=== PATIENT | female | born 1980 | race African-American/Black ===

== ENCOUNTER 2021-02-09 15:27 | Outpatient (CLI) | payer OTHER, SELFPAY ==
--- NOTE | ~2021-02-09 | US_ITS ---
EXAMINATION: US pelvic complete w TV DATE: 02/09/2021 16:31 INDICATION: Abnormal uterine and vaginal bleeding TECHNIQUE: Multiple transabdominal and endovaginal sonographic images of the pelvis were obtained. COMPARISON: None. FINDINGS: The uterus measures 7.7 x 4.4 x 5.1 cm. The endometrial complex measures 3 mm. A 4 mm hyper echoic focus associated with the endometrium could reflect an endometrial calcification. The right ov veda measures 3.0 x 2.9 x 2.4 cm. The left ovary measures 2.6 x 1.6 x 2.3 cm. There is normal vascular flow in the ovaries. There is no free fluid in the pelvis. IMPRESSION: 1. No sonographic correlate for the patient's symptoms. Reviewed, dictated and finalized at location B.
== END 2021-02-09 15:28 | disposition home or self-care (01) ==
PROVIDERS: Visit Provider Student in an Organized Health Care Education/Training Program
DX: N93.9 Abnormal uterine and vaginal bleeding, unspecified (principal)
CPT/HCPCS: 76830; 76856

== ENCOUNTER 2024-03-29 15:11 | Outpatient (CLI) | payer OTHER, SELFPAY ==
[2024-03-29 15:55] LABS: Hematocrit 37.9 % (37.0-47.0); Hemoglobin 12.3 g/dL (12.0-15.0); Mean Corpuscular HGB Conc 32.5 g/dl (32-36); Mean Corpuscular Hemoglobin 28.7 pg (26-34); Mean Corpuscular Volume 88.6 fl (80-100); Mean Platelet Volume 10.9 fl (7.4-10.4); Platelet Count Result 352 k/mm3 (150-375); Red Blood Count 4.28 M/mm3 (4.2-5.4); Red Cell Distribution Width 13.2 % (11.5-14.5); White Blood Count 7.8 K/mm3 (4.5-10.0)
== END 2024-03-29 15:12 | disposition home or self-care (01) ==
LOC: ANHLAB 15:12
PROVIDERS: Visit Provider Nurse Practitioner Family
DX: N93.9 Abnormal uterine and vaginal bleeding, unspecified (principal)
CPT/HCPCS: 36415; 85027

== ENCOUNTER 2024-04-25 11:43 | Outpatient (CLI) | payer OTHER, SELFPAY ==
--- NOTE | ~2024-04-25 | US_ITS ---
EXAMINATION: US pelvic complete w TV DATE: 04/25/2024 12:48 INDICATION: Abnormal uterine and vaginal bleeding. TECHNIQUE: Multiple transabdominal and transvaginal sonographic images of the pelvis were obtained. COMPARISON: Ultrasound 02/09/2021 FINDINGS: TRANSABDOMINAL ULTRASOUND: The uterus measures 6.8 x 5.0 x 5.7 cm. There is physiologic free fluid in the pelvis. TRANSVAGINAL ULTRASOUND: The endometrial complex measures 3 mm in thickness. The right ovary measures 1.4 x 2.8 x 2.3 cm. The left ovary measures 3.3 x 2.2 x 2.1 cm. IMPRESSION: 1. Normal pelvis. Reviewed, dictated and finalized at location A. IMPRESSION: 1. Normal pelvis.
== END 2024-04-25 11:44 | disposition home or self-care (01) ==
LOC: ANHIMG 11:49
PROVIDERS: Visit Provider Nurse Practitioner Family
DX: N93.9 Abnormal uterine and vaginal bleeding, unspecified (principal)
CPT/HCPCS: 76830; 76856

== ENCOUNTER 2024-08-06 13:24 | Outpatient (CLI) | payer OTHER, SELFPAY | END 2024-08-06 13:25 | disposition home or self-care (01) | LOC: ANHLAB 13:25 | PROVIDERS: Visit Provider Anesthesiology | DX: N93.8 Other specified abnormal uterine and vaginal bleeding (principal) | CPT/HCPCS: 36415; 86850; 86900; 86901 ==

== ENCOUNTER 2024-08-08 00:31 | Day surgery (SDC) | payer OTHER, SELFPAY ==
[2024-08-01 09:32] VITALS: BMI 30.2
--- NOTE | 2024-08-01 09:40 | PC.NURSE ---
Report to the Outpatient Waiting Room, entrance under the green pavilion located off [facility], at time _0600 on date __08/08/24. Planned Procedure Time: _0730_.? Time changes happen often and if your time is changed the preop area will call you the afternoon before. - You and your visitor will be asked to self-screen and do not enter if you have any COVID symptoms. Please call surgeon if you need to reschedule. - A mask is optional within the hospital at this time. Patients may have clear liquids (water, carbonated beverages, clear teas, apple juice) until 3 hours prior to surgery with a maximum of 20 ounces. - No food from midnight until time of surgery and no smoking. This includes no chewing gum, candy or mints. - Infants may have breast milk until 4 hours before surgery, formula 6 hours prior to surgery. - Children will be allowed to drink immediately following surgery.? If applicable, please bring a bottle or sippy cup to assist with drinking. Juice, water, soda, and popsicles are readily available.? For infants on formula, please bring formula the day of surgery.? Pacifiers are allowed. Take only the following medications with a SIP of water on the morning of surgery: ____PAIN PILL, INHALER IF NEEDED DO NOT STOP ANY OF YOUR OTHER PRESCRIPTION MEDICATIONS PRIOR TO SURGERY EXCEPT THE FOLLOWING Medications to discontinue per physician VITAMIN D Date to take last dose 07/30/24 Please no make-up, nail turkmen, hairspray, perfume, deodorant, or body powder the day of surgery.? No jewelry (including any body piercings) or valuables the day of surgery, leave them at home.? Please take a shower or bath the night before, or the morning of, surgery with an antibacterial soap.? Wear comfortable, loose fitting clothing.? Children are encouraged to wear pajamas. - Jewelry must be removed prior to entering the operating room.? Rings and piercings that are not removed may be cut off. - The hospital will not accept responsibility for valuables.? - Please leave all valuables, including medications, at home the day of surgery. If you are going home after surgery, a licensed hog driver must drive you home.? - NO public transportation without another adult if you receive anesthesia. - We recommend that an adult stay with you for 24 hours following discharge. - We also recommend that you do not drive, make important decision, drink alcoholic beverages, or take any drugs that were not prescribed by your health care provider for at least 24 hours after your discharge time. For Pediatric surgeries, we recommend two adults accompany the child home. Follow any additional instructions given to you from your surgeon. Telephone instructions given to _PATIENT_and asked if any additional questions and then verbalized understanding. Patient advised to call surgeon office or pre surgery nurse liaison [phone] if any additional questions.
[2024-08-08] VITALS (14 sets, daily range): BP systolic 106–139; BP diastolic 59–88; PULSE 68–79; RESP 10–20; TEMP 36.1–36.8; O2SAT 96–100
[2024-08-08] MEDS: ACETAMINOPHEN 500 MG TABLET 1000 MG PO ×3 (06:50→18:45)
[2024-08-08] MEDS: LACTATED RINGERS 1,000 ML 30 ML IV CONT ×2 (06:55→09:30)
[2024-08-08] MEDS: KETOROLAC 15 MG/ML VIAL (*BKC) IV PUSH (07:08)
--- NOTE | 2024-08-08 07:16 | P.PNAN_ITS ---
Anes - Initial Pre Proc Eval Procedure: Operation Date: 08/08/24 07:30 Proposed Procedures p Robotic Assisted Total Vaginal Hysterectomy with Bilateral Salpingo- oophorectomy - Drew Jasmine MD Date/Time: 08/08/24 07:16 Surgeon: Drew Jasmine MD Pre Op Diagnosis: menorrhagia Patient Data Age: 43 Gender: F Height: 1.68 m Weight: 85 kg Allergies Allergy/AdvReac Type Severity Reaction Status Date / Time percocet AdvReac Intermediate hallucinate Uncoded 08/08/24 07:09 Home Medications ?Medication ?Instructions ?Recorded ?Confirmed ?Type hydrocodone 7.5 mg-acetaminophen 1 tablet PO QHS PRN pain 01/21/21 08/08/24 History 325 mg tablet mycophenolate mofetil 500 mg tablet 1,000 mg PO Q12H 01/21/21 08/01/24 History cholecalciferol (vitamin D3) 50 50 mcg PO WEEKLY 03/29/24 08/08/24 History mcg (2,000 unit) capsule albuterol sulfate 90 mcg/actuation 2 puff inhalation Q4H PRN 08/01/24 08/01/24 History aerosol inhaler shortness of breath or wheezing Patient hx anesthesia problems: none Family hx anesthesia problems: none Results Review: All pre-operative results and documents have been reviewed as part of the pre- operative evaluation. [facility] Past Medical History Medical History Lupus History of History of miscarriage Asthma Surgical History Surgical History History of cholecystectomy 2018 History of tubal ligation 2006 Family History Family History Mother Thyroid disorder Social History Social History Smoking status: Never smoker Alcohol intake: never Substance use: never Living arrangements: with family Anes - Eval Final PreProcedure Day of Procedure 08/08/24 07:16 Patient weight: obese Heart: regular rate and rhythm Lungs: clear to auscultation Airway: Mallampati scale class II (has braces) Neurological: alert and oriented Last oral intake: >/= 8 hours ASA classification: III Emergent: no Anesthetic plan: proceed Anesthesia type and monitoring: general ETT and standard monitoring Results Review: All pre-operative results and documents have been reviewed as part of the pre- operative evaluation. Informed Consent: The patient's anesthetic plan and its attendant risks and benefits were discussed with the patient/family/POA. Questions were solicited and answers provided to the satisfaction of the patient/family/POA.
--- NOTE | 2024-08-08 07:21 | WPDHPUPDATE1 ---
History and Physical Update Update Date/Time: 08/08/24 07:21 History and Physical has been reviewed, including an updated exam of the patient. There are NO changes in the patient's condition. Risks, benefits, and alternatives have been discussed and questions answered. Patient agrees to proceed with procedure.
[2024-08-08] MEDS: ceFAZolin 2 GM/D5W 50 ML 2 GM/50 ML BAG IVPB (07:30)
[2024-08-08 07:35] LABS: BEDSIDEPREGUCG Negative (Negative)
[2024-08-08] MEDS: BUPivacaine HCL 0.5% 10 ML AMP 20 ML INFILTRATE (08:04)
--- NOTE | 2024-08-08 09:10 | P.OPB_ITS ---
Procedure Note - Brief Procedure Note - Brief Date of procedure: 08/08/24 menorrhagia Post-op diagnosis: Same (Adhesions of ovary to uterus) Procedure performed: 1.Laparoscopic robotic assisted total vaginal hysterectomy with bilateral salp ingectomy 2. Lysis of adhesions Surgeon: Drew Jasmine MD Hyperbaric Nurse: Prateek Newman Anesthesia: GETA Findings: Uterus mildly enlarged, small growth on lower posterior uterus consistent soft fibroid. Right ovary adhesed to posterior uterus. Findings consistent with prior bilateral tubal ligation. Some adhesions upper abdomen. Estimated blood loss (mL): 20 Drains: No Packing: No Pathology: Yes (Uterus with cervix and right and left fallopian tubes) Complications: No immediate complications Condition: Stable Disposition: PACU
[2024-08-08] MEDS: fentaNYL CITRATE INJ (*CRX) 100 MCG/2 ML VIAL 25 MCG IV PUSH ×8 (09:45→10:55)
[2024-08-08] MEDS: ONDANSETRON INJ 4 MG/2 ML VIAL IV PUSH ×3 (10:00→20:00)
--- NOTE | 2024-08-08 10:05 | P.OP_ITS ---
Procedure Note - Detailed Date of Procedure 08/08/24 Pre-op Diagnosis menorrhagia Post-op Diagnosis Same Procedure Performed Laparoscopic Robotic assisted total vaginal hysterectomy with bilateral salpingectomy 2. lysis Of adhesion Surgeon Drew Jasmine MD Record Retrieval Specialist Prateek Mejia Anesthesia General Indications recurrent dysfunctional uterine bleeding resistant to medical management patient desires definitive treatment of the abnormal bleeding Findings uterus mildly enlarged growth on the outer uterus consistent with possible soft degenerated fibroid adhesion of the right ovary to the posterior uterus. Evidence of bilateral salpingectomy. Description of Procedure After informed consent was obtained she was taken to the operating room and general endotracheal anesthesia was administered. She was placed in low lithotomy position. An exam under anesthesia was performed. Uterus mildly enlarged no adnexal masses palpated. She was and prepped and draped in sterile fashion. Velasquez catheter placed in bladder. Attention was turned to the vagina speculum was inserted. Single-tooth tenaculum placed on anterior lip of the cervix the uterus sounded to 9 cm. The cervix was dilated to a 8 Matos dilator. A size 8 uterine manipulator was inserted and secured. A size 3.0 colp cup was secured in the vagina. Then attention was turned to the abdomen with new sterile gloves. .5% marcaine injected subcutaneously. An incision was made horizontal 2 cm above the umbilicus. A Veress needle was inserted. Confirmation into the abdomen obtained with normal peritoneal pressures and free flow of fluid. A Pneumoperitoneum of 15 mm per mercury was obtained. 8 mm robotic port was inserted under laparoscopic visualization. No adhesions in the pelvis. There was an adhesion band superior to the incision in the upper mid abdomen consistent with her prior cholecystectomy. A small incision was made approximately 6 cm lateral to the port on the left. A size 8mm robotic port was inserted under laparoscopic visualization into the abdomen on the left side. Attention was turned to the right side of the abdomen and a robotic port was inserted under laparoscopic visualization. Prior to incisions Marcaine was injected before incision made. And then the incision was made superior and medial to the right port and a 10 mm assistant professor of nursing port was inserted under laparoscopic visualization. The robotic arms were attached to the ports. Attention was turned to the surgery consule. The right round ligament was ligated and the anterior leaf of the broad ligament was dissected anteriorly the vesicouterine peritoneum was dissected from the lower uterine segment to below the palpation of the colp cup. The right fallopian tube was ligated from the broad ligament . The ovarian ligament was ligated. There was adhesions of the distal right ovary to the posterior uterus these adhesions were lysed and the ovary was freed from the posterior uterus. Ascending Uterine vessels were ligated. the right uterine artery was ligated. Attention was turned to the left round ligament which was ligated and the anterior leaf of the broad ligament was dissected anteriorly. The rest of the vesicouterine peritoneum was dissected off of the uterus. The left fallopian tube was ligated from the broad ligament.The ovarian ligament was ligated. The ascending uterine vessels were ligated. The uterine arteries were ligated. The cardinal ligaments were ligated. This was done on both sides. An incision was made anterior colpotomy incision was made and this was carried around until the cervix was removed from the vagina. The uterus and cervix were removed through the vagina. The vaginal cuff was closed in a running fashion with 0 V lock suture x 2 sutures. Hemostasis was noted. The pelvis was irrigated. Hemostasis noted. Hemoderm was applied in the pelvis. The patient was taken out of Trendelenburg position. The pneumoperitoneum was released and the ports were removed. The skin incisions were closed in a subcuticular fashion with 4-0 Vicryl Dermabond placed. The patient was extubated in operating room. The sponge count was correct x2. Patient tolerated procedure well and was taken to recovery in stable condition. Estimated Blood Loss 20 Drains No Packing No Pathology Yes ( Uterus and cervix and right and left fallopian tubes) Complications No immediate complications Condition Stable Disposition PACU [facility] Billing Surgery - Charge Forward: Surgery Billing
[2024-08-08] MEDS: HYDROmorphone HCL INJ (*CRX) 1 MG/ML SYR 0.5 MG IV PUSH ×2 (11:04→11:14)
[2024-08-08] MEDS: SIMETHICONE 80 MG TAB.CHEW PO ×2 (11:53→16:50)
[2024-08-08] MEDS: HYDROcodone/acetaminophen (*CRX) 10-325 MG TABLET 1 TAB PO ×2 (11:53→16:50)
[2024-08-08] MEDS: KETOROLAC 30 MG/ML VIAL (*BKC) IV PUSH ×2 (12:57→18:45)
[2024-08-08] MEDS: MORPHINE SULFATE (*CRX) 4 MG/ML INJ IV PUSH ×2 (14:20→19:59)
[2024-08-08] MEDS: DOCUSATE SODIUM 100 MG CAPSULE PO (16:50)
[2024-08-08] MEDS: DEXTROSE 5%/0.45% SOD CHL 1,000 ML 125 ML IV CONT (18:45)
[2024-08-08] MEDS: CYCLOBENZAPRINE HCL 10 MG TABLET PO (18:52)
[2024-08-09] MEDS: HYDROcodone/acetaminophen (*CRX) 10-325 MG TABLET 1 TAB PO ×4 (00:16→10:25)
[2024-08-09] MEDS: KETOROLAC 30 MG/ML VIAL (*BKC) IV PUSH (00:16)
[2024-08-09] MEDS: SIMETHICONE 80 MG TAB.CHEW PO ×2 (04:10→13:33)
[2024-08-09 04:42] VITALS: BP 118/66; PULSE 76; RESP 20; TEMP 36.4; O2SAT 98
[2024-08-09] MEDS: DOCUSATE SODIUM 100 MG CAPSULE PO (07:05)
[2024-08-09] MEDS: IBUPROFEN 600 MG TABLET PO ×2 (07:05→13:33)
[2024-08-09 08:50] VITALS: BP 147/72; PULSE 83; RESP 16; TEMP 36.6; O2SAT 98
--- NOTE | 2024-08-09 12:49 | P.PNOB_ITS ---
MEMBERSHIP MANAGER - A/P Assessment and plan (1) Status post hysterectomy: Code(s): Z90.710 - Acquired absence of both cervix and uterus Status: Acute Assessment and Plan: POD1. Pain improved but will try Dilaudid with next dose to see if has longer analgesia. Anticipate discharge today. Postoperative Procedures: Procedures Operation Date: 08/08/24 07:30 Actual Procedure Side Surgeon p Robotic Assisted Total Vaginal Hysterectomy with Bilateral Salpingectomy Bilateral Drew Jasmine MD Time Spent With Patient Time: Total time spent is greater than 50% in coordination of care (as documented) at patient's floor/unit and/or counseling patient: Time with patient: less than 15 minutes MEMBERSHIP MANAGER- PN:Subj Post-Op Subjective Date/time seen: 08/09/24 12:49 Interval history: She states pain is better than yesterday, is requesting meds every about every three hours. Gas pains improved with Simethicone. She has ambulated in room. Binder helps. No leg pain or SOB or chest pain. Minimal spotting. No emesis. Exam Const: General: no acute distress Neck: Neck: normal visual inspection Resp: Effort & Inspection: normal respiratory effort Auscultation: clear to auscultation bilaterally GI: Other: mild distended mild tender incisions intact + BS throughout Neuro: General: patient oriented x3 Extrem: General: normal to inspection, pedal edema present and no calf tenderness MEMBERSHIP MANAGER - PN: Obj Data Vital Signs Vital Signs: Vital Signs - 24 hr 08/08/24 16:45 08/08/24 20:00 08/08/24 23:19 Temperature 97.9 F 98.2 F Pulse Rate 77 77 Respiratory Rate 16 20 Blood Pressure 118/59 L 124/73 Pulse Oximetry 100 Oxygen Delivery Room Air 08/08/24 23:19 08/09/24 04:42 08/09/24 04:42 Temperature 98.0 F 97.6 F Pulse Rate 77 76 Respiratory Rate 18 20 Blood Pressure 106/62 118/66 Pulse Oximetry 96 98 Oxygen Delivery Room Air 08/09/24 08:50 Temperature 98 F Pulse Rate 83 Respiratory Rate 16 Blood Pressure 147/72 H Pulse Oximetry 98 Oxygen Delivery Intake/Output Intake/Output: Intake & Output 08/06/24 08/07/24 08/08/24 08/09/24 23:59 23:59 23:59 23:59 Intake Total 1450 Output Total 300 450 Balance 1150 -450 Meds/Results Medications: Active Medications Generic Name Dose Route Start Last Admin Trade Name Freq PRN Reason Stop Dose Admin Acetaminophen 1,000 mg 08/08/24 12:00 08/09/24 07:39 Acetaminophen 500 Mg Tablet PO Not Given Q6HR ROCIO Hydrocodone Bitart/Acetaminophen 1 tab 08/08/24 09:11 Hydrocodone/Acetaminophen (*Crx) 5-325 Mg Tablet PO Q3H PRN Pain Rated 4-6 Hydrocodone Bitart/Acetaminophen 1 tab 08/08/24 09:11 08/09/24 10:25 Hydrocodone/Acetaminophen (*Crx) 10-325 Mg Tablet PO 1 tab Q3H PRN Administration Pain Rated 7-10 Albuterol 2 puff 08/08/24 11:29 Albuterol Sulfate (*Sp) Aerosol 1 Puff INHALATION Q4H PRN shortness of breath or wheezing Cyclobenzaprine HCl 10 mg 08/08/24 17:36 08/08/24 18:52 Cyclobenzaprine Hcl 10 Mg Tablet PO 10 mg Q8H PRN Administration Muscle Spasm Docusate Sodium 100 mg 08/08/24 17:00 08/09/24 07:05 Docusate Sodium 100 Mg Capsule PO 100 mg BID ROCIO Administration Ibuprofen 600 mg 08/09/24 06:00 08/09/24 07:05 Ibuprofen 600 Mg Tablet PO 600 mg Q6HR ROCIO Administration Morphine Sulfate 4 mg 08/08/24 09:11 08/08/24 19:59 Morphine Sulfate (*Crx) 4 Mg/Ml Inj IV PUSH 4 mg Q4H PRN Administration Breakthrough Pain Rated 7-10 or NPO Naloxone HCl 0.1 mg 08/08/24 09:11 Naloxone Hcl 0.4 Mg/Ml Vial IV PUSH Q2M PRN Respiratory rate less than 10 Ondansetron HCl 4 mg 08/08/24 09:11 08/08/24 20:00 Ondansetron Inj 4 Mg/2 Ml Vial IV PUSH 4 mg Q6H PRN Administration Nausea And Vomiting Simethicone 80 mg 08/08/24 12:00 08/09/24 04:10 Simethicone 80 Mg Tab.Chew PO 80 mg TIDWM ROCIO Administration
[2024-08-09] MEDS: HYDROmorphone HCL (*CRX) 2 MG TABLET PO (13:33)
--- NOTE | 2024-08-09 14:18 | WPDANESPN ---
Anes - Prog Note Post-Op Date/Time: 08/09/24 14:18 Vital Signs: Last Vital Signs Temp 36.6 C 08/09/24 08:50 Pulse 83 08/09/24 08:50 Resp 16 08/09/24 08:50 BP 147/72 H 08/09/24 08:50 Pulse Ox 98 08/09/24 08:50 O2 Del Method Room Air 08/09/24 04:42 O2 Flow Rate 8 08/08/24 09:45 Pain Score (VAS): 0 I/O: Intake & Output 08/08/24 08/09/24 08/09/24 23:59 07:59 15:59 Intake Total 500 Output Total 300 450 Balance 200 -450 Patient Feedback: Patient satisfied with anesthetic care.
== END 2024-08-09 16:27 | disposition home or self-care (01) ==
LOC: ANHSURGERY 05:44 → ANHOB2 15:42
PROVIDERS: Visit Provider Obstetrics & Gynecology
PROC: (CPT 58552; principal; 2024-08-08 07:30)
DX: N92.0 Excessive and frequent menstruation with regular cycle (principal); D25.1 Intramural leiomyoma of uterus; D25.2 Subserosal leiomyoma of uterus; N88.8 Other specified noninflammatory disorders of cervix uteri; N80.03 Adenomyosis of the uterus; N83.8 Other noninflammatory disorders of ovary, fallopian tube and broad ligament; N70.11 Chronic salpingitis; M32.9 Systemic lupus erythematosus, unspecified; J45.909 Unspecified asthma, uncomplicated; Z79.51 Long term (current) use of inhaled steroids; E66.9 Obesity, unspecified; Z68.29 Body mass index [BMI] 29.0-29.9, adult
CPT/HCPCS: 58552; S2900; 88307; 99199; A9270; J0690; J1100; J1171; J1885; J2003; J2250; J2270; J2405; J2704; J3010; J7030; J7120

== ENCOUNTER 2025-04-08 16:50 | Emergency (ER) | payer OTHER, SELFPAY ==
--- OUTSIDE RECORDS SUMMARY | 2010-11-05 09:30 | XMS_ITS | Continuity of Care Document ---
Author Organization [facility] Address [address] [place] [address] [address] [place] [address] Phone Care Team Providers Care Rubber Cutter Name Role Phone Brittney RING OD, Bryan Unavailable Unavailabl e Procedures Procedure Date Contact Lens Check Contact Lens Fit, Med Superv, Level 1 Ap Office/outpatient Visit, New Refraction Advance Directives Directive Yes / No Effective Date File Name No Information Encounters Encounter Description Practice Location Reason(s) For Visit Diagnoses Date Provider Providers Copied on Encounter [facility], [address] [place] [address] [address], [place], [place], [id number], [place] tel:[phone] [facility] No Information Brittney Adams. [address], [place], [id number], [place]. tel:[phone] Referring Provider: Bryan Lugo OD P, [address] [place], [address] . tel:[phone] [facility], [address] [place] [address] [address], [place], [place], [id number], [place] tel:[phone] [facility] No Information Brittney Adams. [address], [place], [id number], [place]. tel:[phone] Referring Provider: Bryan Lugo OD P, [address] [place], [address] . tel:[phone] Office/outpat ient Visit, [facility], [address], [place], [place], [id number], [place] tel:[phone] [facility] No Information Brittney Adams. [address], [place], [id number], [place]. tel:[phone] Referring Provider: Bryan Suarez, [address] [place], [address] . tel:[phone] Family History Family Member Type Diagnosis Age At Onset No Information Payers Payer name Insurance type Covered constitution party ID Authoriza tion(s) No Information Social History Type Description Quantity Date Captured Comments Sex Female Smoking Status No Information Chief Complaint And Reason For Visit No Information Reason For Referral Reason For Referral No Information History Of Present Illness Encounter Date Complaint History Of Prese nt Illness No Information Functional Status Date Functional Assessmen t No Information Instructions Date Instruction Additional Infor mation No Information Assessments Type Assessment Date No Information Patient Care Teams Name Effective Dates (start - stop) Status Members No Information
--- OUTSIDE RECORDS SUMMARY | 2010-11-05 09:30 | XMS_ITS | Continuity of Care Document ---
Author Organization [facility] Address [address] [place] [address] [address] [place] [address] Phone Care Team Providers Care Spooler Operator Automatic Name Role Phone Brittney RING OD, Bryan Unavailable Unavailabl e Procedures Procedure Date Contact Lens Check Contact Lens Fit, Med Superv, Level 1 Ap Office/outpatient Visit, New Refraction Advance Directives Directive Yes / No Effective Date File Name No Information Encounters Encounter Description Practice Location Reason(s) For Visit Diagnoses Date Provider Providers Copied on Encounter [facility], [address] [place] [address] [address], [place], [place], [id number], [place] tel:[phone] SEC [facility] No Information Brittney Adams. [address], [place], [id number], [place]. tel:[phone] Referring Provider: Bryan Lugo OD P, [address] [place], [address] . tel:[phone] [facility], [address] [place] [address] [address], [place], [place], [id number], [place] tel:[phone] [facility] No Information Brittney Adams. [address], [place], [id number], [place]. tel:[phone] Referring Provider: Bryan Lugo OD P, [address] [place], [address] . tel:[phone] Office/outpat ient Visit, [facility], [address], [place], [place], [id number], [place] tel:[phone] [address] [facility] No Information Brittney Adams. [address], [place], [id number], [place]. tel:[phone] Referring Provider: Bryan Saurez, [address] [place], [address] . tel:[phone] Family History Family Member Type Diagnosis Age At Onset No Information Payers Payer name Insurance type Covered democrat ID Authoriza tion(s) No Information Social History [...]
--- OUTSIDE RECORDS SUMMARY | 2018-03-29 05:26 | XMS_ITS | Continuity of Care Document ---
Author Organization [facility] Address [address] [address] Phone Care Team Providers Care Shoe Repair Cobbler Name Role Phone Piotr Damon MD Unavailable Unavailable Allergies, Adverse Reactions, Alerts Substance Reaction Status Criticality No Known allergies Medications Medication Instructions Dosage Effective Dates (start - stop) Status Comments Ventolin HFA 90 mcg/actuation Aerosol Inhaler inhale 2 puff by Inhalation route every 4 - 6 hours as needed 2 puff - Active Procedures Procedure Date No Show/Missed Appointment Consult (Level 4) OFFICE CONSULTATION Ju PF Pre/Post Bronchodlator Albuterol comp unit Advance Directives Directive Yes / No Effective Date File Name No Information Encounters Encounter Description Practice Location Reason(s) For Visit Diagnoses Date Provider Providers Copied on Encounter [facility], [address] [place] [address], [id number], tel:[phone] [facility] No Information 8 Nelson Saldaña. [address], [id number] , . tel: [phone] [facility], [address] [place] [address], [id number], tel:[phone] [facility] No Information 4 Delisa Carmona. [address] [place] [address], [id number] , [place]. tel:[phone] Referring Provider: Jared Lentz, [address], [place], [address] . tel:[phone] Consult (Level 4) OFFICE CONSULTATION [facility], [address], [place], [place], [id number], tel:[phone] [facility] urticaria (hives) (chief complaint) allergies and asthma (chief complaint) UrticariaAngione urotic edema, not elsewhere classifiedAllerg ic rhinitis, cause unspecifiedAsthm a 3 Delisa Carmona. [address] [facility], [place], [place], [id number] , [place]. tel:[phone] Referring Provider: Jared Lentz, [address], [place], [address] . tel:[phone] Family History Family Member Type Diagnosis Age At Onset Problem (finding) No family history of Ur ticaria Problem (finding) No family history of An gioedema Problem (finding) No family history of Im munodeficiency Problem (finding) No family hist ory of Rheumatoid arthritis Mother Problem (finding) Thyroid disease Problem (finding) No family hist ory of Systemic lupus erythematosus Payers Payer name Insurance type Covered libertarian ID Authoriza tion(s) No Information Social History Type Description Quantity Date Captured Comments Sex Female Smoking Status No Information Chief Complaint And Reason For Visit No Information Reason For Referral Reason For Referral No Information History Of Present Illness Encounter Date Complaint History Of Prese nt Illness No Information Functional Status Date Functional Assessmen t No Information Instructions Date Instruction Additional Infor jesus Proper MDI technique was reviewe dAlfonso Related to Asthma If signs/symptoms of persistent asthma occur- contact our office. Related to Asthma Assessments Type Assessment Date No Information Patient Care Teams Name Effective Dates (start - stop) Status Members No Information
--- OUTSIDE RECORDS SUMMARY | 2018-03-29 05:26 | XMS_ITS | Continuity of Care Document ---
Author Organization [facility] Address [address] [address] Phone Care Team Providers Care Circular Saw Operator Name Role Phone Piotr Damon MD Unavailable [...] Encounter [facility], [address] [place] [address], [id number], tel:[phone] [facility] No Information 8 Nelson Saldaña. [address], [id number] , . tel: [phone] [facility], [address] [place] [address], [id number], tel:[phone] [facility] No Information 4 Delisa Carmona. [address] [place] [address], [id number] , [place]. tel:[phone] Referring Provider: Jared Lentz, [address], [place], [address] . tel:[phone] Consult (Level 4) OFFICE CONSULTATION [facility], [address], [place], [place], [id number], tel:[phone] [facility] urticaria (hives) (chief complaint) allergies and asthma (chief complaint) UrticariaAngione urotic edema, not elsewhere classifiedAllerg ic rhinitis, cause unspecifiedAsthm a 3 Delisa Carmona. [address] [facility], [place], [place], [id number] , [place]. tel:[phone] Referring Provider: Jared Lentz, [address], [place], [address] . tel:[phone] Family History Family Member Type Diagnosis Age At Onset Problem (finding) No family history of Ur ticaria Problem (finding) No family history of An gioedema Problem (finding) No family history of Im munodeficiency Problem (finding) No family hist ory of Rheumatoid arthritis Mother Problem (finding) Thyroid disease Problem (finding) No family hist ory of Systemic lupus erythematosus Payers Payer name Insurance type Covered alliance party ID Authoriza tion(s) No Information Social [...]
[2025-04-08 16:58] VITALS: BP 150/87; PULSE 86; RESP 16; TEMP 36.4; O2SAT 100
--- NOTE | 2025-04-08 17:42 | ED.WOUNDLAC ---
HPI - Wound/Laceration General Chief Complaint: Wound/Laceration Stated Complaint: finger infection Time Seen by Provider: 04/08/25 17:04 History of Present Illness HPI narrative: Patient is a 44-year-old female who presents to the ER with a right 4th digit swollen finger. She reports the area around her fingernail has been swollen and draining pus since she had her nails done several weeks ago. Patient reports her primary care provider put her on doxycycline she completed the course, but the site continues to drain. She denies any decreased range of motion, excessive swelling, scaphoid tenderness. Patient denies any history of diabetes, although her medical history indicates she takes Semaglutitide. Related Data Home Medications ?Medication ?Instructions ?Recorded ?Confirmed ?Last Taken ?Type hydrocodone 7.5 mg-acetaminophen 1 tablet PO QHS PRN pain 01/21/21 09/24/24 08/06/24 History 325 mg tablet mycophenolate mofetil 500 mg tablet 1,000 mg PO Q12H 01/21/21 09/24/24 07/11/24 History cholecalciferol (vitamin D3) 50 50 mcg PO WEEKLY 03/29/24 09/24/24 07/31/24 History mcg (2,000 unit) capsule albuterol sulfate 90 mcg/actuation 2 puff inhalation Q4H PRN 08/01/24 09/24/24 Unknown History aerosol inhaler shortness of breath or wheezing semaglutide 0.25 mg or 0.5 mg (2 0.25 mg subcut WEEKLY 01/23/25 Unknown History mg/3 mL) subcutaneous pen injector (Ozempic) Allergies Allergy/AdvReac Type Severity Reaction Status Date / Time percocet Allergy Intermediate Hallucinati Uncoded 04/08/25 16:56 ng Review of Systems Review of Systems: All systems reviewed & are unremarkable except as noted in HPI and below PMFSH Past Medical History Medical History Lupus History of History of miscarriage Asthma Surgical History Surgical History History of robot-assisted laparoscopic hysterectomy History of cholecystectomy 2018 History of tubal ligation 2006 Family History Family History Mother Thyroid disorder Social History Social History Smoking status: Never smoker Alcohol intake: never Substance use: never Living arrangements: with family Exam Narrative: GENERAL: Well appearing, well-nourished, non-toxic, in no acute distress. HEAD: Normocephalic, atraumatic. NECK: Supple. No adenopathy, no masses. RESPIRATORY: Airway patent, respirations nonlabored. Clear to auscultation bilaterally, no rales, rhonchi, wheezing. CARDIOVASCULAR: Regular rate and rhythm without murmurs, rubs, or gallops. Peripheral pulses 2+ and equal bilaterally. ABDOMINAL: Soft, nontender, nondistended, no hepatosplenomegaly. Normoactive BS. MUSCULOSKELETAL: Moves all extremities. Strength/ROM intact without gross deformities. SKIN: Warm, dry, normal color. No rashes. R 4th digit swelling without visible drainage, palpable edema around nail bed NEURO: A&O X3. Speech clear. Cranial nerves II-XII intact. No ataxic movements. PSYCHIATRIC: Appropriate mood and affect. Normal interaction. Course Vital Signs Vital signs: Vital Signs Temperature 36.4 C 04/08/25 16:58 Pulse Rate 86 04/08/25 16:58 Respiratory Rate 16 04/08/25 16:58 Blood Pressure 150/87 H 04/08/25 16:58 Pulse Oximetry 100 04/08/25 16:58 Temperature 36.4 C 04/08/25 16:58 Pulse Rate 86 04/08/25 16:58 Respiratory Rate 16 04/08/25 16:58 Blood Pressure 150/87 H 04/08/25 16:58 Pulse Oximetry 100 04/08/25 16:58 Procedures Abscess I/D hand: Date of Incision: 04/08/25 Time of Incision: 21:00 Side (if applicable): right Local Anesthetic: lidocaine 1% Amount of anesthesia used (mL): 5 Technique: needle aspiration Amount of fluid expressed (mL): 1 Irrigation: Yes Packing used?: none I&D Results: Pus and Blood MDM - Wound/Laceration MDM Narrative Medical decision making narrative: Patient is a 44-year-old female who presents to the ER with a right 4th digit swollen finger. She reports the area around her fingernail has been swollen and draining pus since she had her nails done several weeks ago. Patient reports her primary care provider put her on doxycycline she completed the course, but the site continues to drain. She denies any decreased range of motion, excessive swelling, scaphoid tenderness. Patient denies any history of diabetes, although her medical history indicates she takes Semaglutide. Labs Ordered: None necessary Imaging Ordered: None necessary Medications Ordered: [place] p.o., Bactrim p.o., Mupirocin ointment, Lidocaine infiltrate Diagnosis: Paronychia Patient Education/Shared MDM: Results of examination shared with patient. She endorses improvement of symptoms following medication administration. Patient strongly advised to follow-up with her PCP as soon as possible to ensure she is healing and complete her full dose of antibiotics. She will be discharged home with a prescription for Bactrim and Mupirocin. Strict return precautions provided. Patient verbalized understanding and is in agreement with plan. Vital signs stable at time of discharge. All questions answered. Differential Diagnosis Differential diagnosis: Likely abscess, abrasion, avulsion of skin and other (paronychia) Discharge Plan Discharge Clinical Impression: Paronychia, Finger pain, right Patient Disposition: Home Condition: Stable Instructions: Antibiotic Form, Paronychia (ED) Additional Instructions: Please return to the ER with any worsening symptoms. Follow-up with primary care provider as soon as possible to ensure you are healing. Take all medications as prescribed, including regularly scheduled medications. Complete your full dose of antibiotics. Please take Tylenol and ibuprofen for pain control. Patient Language: [place] Prescriptions: New mupirocin [[place]] 2 % ointment 1 applic topical TID Qty: 22 0RF sulfamethoxazole-trimethoprim [Bactrim DS] 800-160 mg tablet 1 tablet PO Q12H 5 Days Qty: 10 0RF No Action hydrocodone-acetaminophen 7.5-325 mg tablet 1 tablet PO QHS PRN (Reason: pain) mycophenolate mofetil 500 mg tablet 1,000 mg PO Q12H Patient Comments: pt states has not taken any doses Rx Instructions: unknown dosage cholecalciferol (vitamin D3) 50 mcg (2,000 unit) capsule 50 mcg PO WEEKLY Patient Comments: TAKES ON MONDAYS triamcinolone acetonide 0.5 % cream 1 applic topical BID PRN (Reason: external vaginal irritation) Qty: 15 1RF Ozempic 0.25 mg or 0.5 mg (2 mg/3 mL) pen injector 0.25 mg subcut WEEKLY Rx Instructions: for 4 weeks albuterol sulfate 90 mcg/actuation HFA aerosol inhaler 2 puff INHALATION Q4H PRN (Reason: shortness of breath or wheezing) Follow-up/Referrals: Herb Engle MD [Physician, Family Practice] Referral Note: primary care provider UNKNOWN,DOCTOR [Primary Care Provider] Stand Alone Forms: Work/School Release IP Time of Disposition: 20:09
--- NOTE | 2025-04-08 18:31 | PC.NURSE ---
Per Swati FAGOT HEATER HELPER, pt. R. ring finger is soaking in betadine and saline solution.
--- OUTSIDE RECORDS SUMMARY | 2025-04-08 19:00 | XMS_ITS | Clinical Summary ---
Author Organization [facility] Address [address] [place] [id number] Care Team Providers Care Lunchroom Monitor Name Role Phone Bibi Murphy Gisell DO Primary Care Provi lui William Seaman MD Unavailable [phone] Allergies Active Allergy Reactions Criticality Noted Date Comments Azathioprine Angioedema High 10/06/2017 Hydroxychloroquine Dizziness Medium 10/06/2017 dizzy Milk Unknown 07/14/2018 Mushroom Hives Medium 07/14/2018 Shellfish Derived Unknown 07/14/2018 Yeast Unknown 07/14/2018 Medications cyclobenzaprine (FLEXERIL) 10 mg tabletIndicatio ns:Muscle Spasm Take 1 tablet (10 mg total) by mouth 3 (three) times a day as needed for muscle spasms for up to 7 days 90 tablet 03/02/20 22 025 Active mycophenolate mofetil (CELLCEPT) 500 mg tablet Take 1 tablet (500 mg total) by mouth 2 (two) times a day 180 tablet 1 04/04/20 24 Active PreviDent 5000 Plus 1.1 % cream Apply 51 g topically 2 (two) times a day 03/15/20 24 Active predniSONE (DELTASONE) 5 mg tablet Take 2 tabs po every day x 5d, 1 tab po every day x 5d and 1/2 tab po every day x 5 d. 30 tablet 05/01/20 24 Active ergocalciferol (VITAMIN D) 50,000 unit capsuleIndicati ons:Vitamin D Deficiency Take 1 capsule (50,000 Units total) by mouth once a week 12 capsule 05/15/20 24 025 Active HYDROcodone-katherine taminophen (NORCO) 10-325 mg per tablet Take 1 tablet by mouth every 6 (six) hours 08/05/19 25 Active HYDROmorphone (DILAUDID) 2 mg tablet Take 1 tablet (2 mg total) by mouth every 6 (six) hours as needed for pain 08/09/19 25 Active ibuprofen (ADVIL,MOTRIN) 600 mg tablet Take 1 tablet (600 mg total) by mouth every 6 (six) hours 08/09/19 25 Active promethazine-co deine (PHENERGAN with CODEINE) 1.25-2 mg/mL syrupIndication s:Cough,Nasal Congestion Take 5 mL by mouth every 4 (four) hours as needed for cough 300 mL 08/15/19 25 Active Additional Information Patient not taking.Reported on 03/11/2025 triamcinolone (KENALOG) 0.1 % creamIndication s:skin rash Apply to affected area 2 times daily. Avoid face and groin. 80 g 5 08/15/19 25 026 Active naloxone (NARCAN) 4 mg/actuation spray,non-aeros ol Administer 1 spray into affected nostril(s) as needed for opioid reversal or respiratory depression Call 911. Administer a single spray in one nostril. Repeat every 3 minutes as needed if no or minimal response. 1 each 08/15/19 25 Active guaiFENesin-cod eine (GUAITUSS AC) liquid 100-10 mg/5 mL Take 5 mL by mouth every 4 (four) hours as needed for cough or congestion 300 mL 08/15/19 25 Active polyethylene glycol (MIRALAX) 17 gram/dose bulk powderIndicatio ns:constipation Take 17 g by mouth daily 850 g 3 01/01/20 25 Active rosuvastatin (CRESTOR) 5 mg tabletIndicatio ns:Elevated cholesterol Take 1 tablet (5 mg total) by mouth daily 90 tablet 3 01/04/20 25 026 Active semaglutide (Ozempic) 0.25 mg or 0.5 mg (2 mg/3 mL) pen injector injectionIndica tions:Weight gain,Hyperglyce karmen INJECT 0.25MG UNDER THE SKIN EVERY 7 DAYS 3 mL 3 04/05/20 25 Active semaglutide (OZEMPIC) 0.25 mg or 0.5 mg(2 mg/1.5 mL) pen injector injectionIndica tions:Weight gain,Hyperglyce karmen Inject 0.25 mg under the skin every 7 days 1.5 mL 02/20/20 25 025 Discontinued fluconazole (DIFLUCAN) 150 mg tablet Take 1 tablet (150 mg total) by mouth daily for 3 days 3 tablet 03/11/20 25 025 Hospital, Clinic, or Other Facility Administered Medication Ordered Dose Route Frequency Start Date End Date Status cyanocobalamin (Vitamin B-12) injection 1,000 mcgIndications:Other fatigue 1000 mcg IM Every 30 days 02/19/2025 Active Active Problems Problem Noted Date Diagnosed Date Paronychia of right ring finger 02/19/2025 Assessment & Plan (03/16/2025 11:05 PM CDT): -02/19/2025, acute, start doxycycline. -03/11/2025, acute, improved with doxycycline, still has some swelling, refer to dermatology. She was encouraged to stop applying hydrogen peroxide. Assessment & Plan (02/24/2025 1:56 AM CDT): -02/19/2025, acute, start doxycycline. B12 deficiency 02/19/2025 Assessment & Plan (02/24/2025 1:53 AM CDT): -02/19/2025, chronic, continue B12 supplement. Weight gain 12/31/2024 Assessment & Plan (02/24/2025 1:59 AM CDT): -02/19/2025, chronic, possibly medication related, discussed dietary changes. Assessment & Plan (12/31/2024 10:19 AM CDT): Reports weight gain since having lupus flares. Weight is unchanged since last visit. Check lab. Slow transit constipation 12/31/2024 Assessment & Plan (12/31/2024 10:18 AM CDT): Chronic, worsening. Start miralax, increase water and fiber intake. Dermatitis 08/15/2024 Assessment & Plan (08/19/2024 4:21 PM SALES ENGINEER ACCOUNT MANAGER): -08/15/2024,chronic,con't triamcinolone cream. Fibromyalgia 12/01/2022 Assessment & Plan (02/24/2025 1:56 AM CDT): -05/01/2024,chronic,unchanged. -02/19/2025, chronic, unchanged, continue ibuprofen daily. Assessment & Plan (01/23/2025 8:33 AM CDT): Has all over pain and tender points along with snoring and poor sleep. Symptoms compatible with fibromyalgia. Advised her in past to get sleep study with pcp. Declines more meds. Advised to exercise regularly and to get plenty of rest. Assessment & Plan (09/26/2024 11:38 AM SALES ENGINEER ACCOUNT MANAGER): Has all over pain and tender points along with snoring and poor sleep. Symptoms compatible with fibromyalgia. Advised her in past to get sleep study with pcp. Declines more meds. Advised to exercise regularly and to get plenty of rest. Assessment & Plan (08/01/2024 8:33 AM SALES ENGINEER ACCOUNT MANAGER): Has all over pain and tender points along with snoring and poor sleep. Symptoms compatible with fibromyalgia. Advised her in past to get sleep study with pcp. Declines more meds. Advised to exercise regularly and to get plenty of rest. Assessment & Plan (06/25/2024 4:46 PM SALES ENGINEER ACCOUNT MANAGER): Has all over pain and tender points along with snoring and poor sleep. Symptoms compatible with fibromyalgia. Advised her in past to get sleep study with pcp. Declines more meds. Advised to exercise regularly and to get plenty of rest. Assessment & Plan (05/25/2024 3:25 PM CDT): Has all over pain and tender points along with snoring and poor sleep. Symptoms compatible with fibromyalgia. Advised her in past to get sleep study with pcp. Will give her a month off work and hope the rest will help with the all over pain. Declines more meds. Advised to exercise regularly and to get plenty of rest. Assessment & Plan (05/13/2024 6:47 PM CDT): -05/01/2024,chronic,unchanged. Assessment & Plan (04/04/2024 12:54 PM CDT): Has all over pain and tender points along with snoring and poor sleep. Appears to have fibromyalgia but 1st need to r/o a sleep disorder. Assessment & Plan (01/05/2024 8:37 AM CDT): Has all over pain and tender points along with snoring and poor sleep. Appears to have fibromyalgia but 1st need to r/o a sleep disorder. Assessment & Plan (12/06/2023 7:32 PM CDT): Has all over pain and tender points along with snoring and poor sleep. Appears to have fibromyalgia but 1st need to r/o a sleep disorder. She has flexeril script which she uses occasionally at night or on her days off work. Makes her too groggy to work/drive when she uses it. Tried low dose of gabapentin in the past but stopped due to lack of benefit. Assessment & Plan (07/01/2023 8:40 AM SALES ENGINEER ACCOUNT MANAGER): Has all over pain and tender points along with snoring and poor sleep. Appears to have fibromyalgia but 1st need to r/o a sleep disorder. Assessment & Plan (12/01/2022 6:11 PM CDT): Has all over pain and tender points along with snoring and poor sleep. Appears to have fibromyalgia but 1st need to r/o a sleep disorder. H/O diagnostic mammography 10/10/2022 Dyslipidemia, goal LDL below 130 10/06/2022 Assessment & Plan (02/24/2025 1:55 AM CDT): -10/06/2022,chronic,uncontrolled,Farheen Arce was advised to maintain a low fat, low cholesterol diet.She was encouraged to maintain a regular cardiovascular exercise program. -05/01/2024,chronic,unchanged,maintain a low fat, low cholesterol diet.She was encouraged to maintain a regular cardiovascular exercise program. -05/29/2024,chronic,unchanged,maintain a low fat, low cholesterol diet.She was encouraged to maintain a regular cardiovascular exercise program. -08/15/2024,chronic,uncontrolled,maintain a low fat, low cholesterol diet.She was encouraged to maintain a regular cardiovascular exercise program. -02/19/2025, chronic, worse,continue Crestor daily, low-cholesterol diet. Lab Results Component Value Date CHOL 286 (H) 12/31/2024 CHOL 282 (H) 10/07/2022 CHOL 240 (H) 10/08/2019 Lab Results Component Value Date HDL 78 12/31/2024 HDL 76 10/07/2022 HDL 59 10/08/2019 Lab Results Component Value Date LDLCALC 186 (H) 12/31/2024 LDLCALC 187 (H) 10/07/2022 LDL 155 (H) 10/08/2019 LDL 166 (H) 10/04/2018 Lab Results Component Value Date TRIG 127 12/31/2024 TRIG 97 10/07/2022 TRIG 131 10/08/2019 Assessment & Plan (08/19/2024 4:20 PM SALES ENGINEER ACCOUNT MANAGER): -10/06/2022,chronic,uncontrolled,Farheen Arce was advised to maintain a low fat, low cholesterol diet.She was encouraged to maintain a regular cardiovascular exercise program. -05/01/2024,chronic,unchanged,maintain a low fat, low cholesterol diet.She was encouraged to maintain a regular cardiovascular exercise program. -05/29/2024,chronic,unchanged,maintain a low fat, low cholesterol diet.She was encouraged to maintain a regular cardiovascular exercise program. -08/15/2024,chronic,uncontrolled,maintain a low fat, low cholesterol diet.She was encouraged to maintain a regular cardiovascular exercise program. Lab Results Component Value Date CHOL 282 (H) 10/07/2022 CHOL 240 (H) 10/08/2019 CHOL 256 (H) 10/04/2018 Lab Results Component Value Date HDL 76 10/07/2022 HDL 59 10/08/2019 HDL 66 10/04/2018 Lab Results Component Value Date LDLCALC 187 (H) 10/07/2022 LDL 155 (H) 10/08/2019 LDL 166 (H) 10/04/2018 Lab Results Component Value Date TRIG 97 10/07/2022 TRIG 131 10/08/2019 TRIG 111 10/04/2018 Assessment & Plan (06/09/2024 11:30 PM SALES ENGINEER ACCOUNT MANAGER): -10/06/2022,chronic,uncontrolled,Farheen Arce was advised to maintain a low fat, low cholesterol diet.She was encouraged to maintain a regular cardiovascular exercise program. -05/01/2024,chronic,unchanged,maintain a low fat, low cholesterol diet.She was encouraged to maintain a regular cardiovascular exercise program. -05/29/2024,chronic,unchanged,maintain a low fat, low cholesterol diet.She was encouraged to maintain a regular cardiovascular exercise program. Lab Results Component Value Date CHOL 282 (H) 10/07/2022 CHOL 240 (H) 10/08/2019 CHOL 256 (H) 10/04/2018 Lab Results Component Value Date HDL 76 10/07/2022 HDL 59 10/08/2019 HDL 66 10/04/2018 Lab Results Component Value Date LDLCALC 187 (H) 10/07/2022 LDL 155 (H) 10/08/2019 LDL 166 (H) 10/04/2018 Lab Results Component Value Date TRIG 97 10/07/2022 TRIG 131 10/08/2019 TRIG 111 10/04/2018 Assessment & Plan (05/13/2024 6:46 PM CDT): -10/06/2022,chronic,uncontrolled,Farheen Arce was advised to maintain a low fat, low cholesterol diet.She was encouraged to maintain a regular cardiovascular exercise program. -05/01/2024,chronic,unchanged,maintain a low fat, low cholesterol diet.She was encouraged to maintain a regular cardiovascular exercise program. Lab Results Component Value Date CHOL 282 (H) 10/07/2022 CHOL 240 (H) 10/08/2019 CHOL 256 (H) 10/04/2018 Lab Results Component Value Date HDL 76 10/07/2022 HDL 59 10/08/2019 HDL 66 10/04/2018 Lab Results Component Value Date LDLCALC 187 (H) 10/07/2022 LDL 155 (H) 10/08/2019 LDL 166 (H) 10/04/2018 Lab Results Component Value Date TRIG 97 10/07/2022 TRIG 131 10/08/2019 TRIG 111 10/04/2018 Assessment & Plan (10/10/2022 7:13 PM CDT): -10/06/2022,chronic,uncontrolled,Farheen Arce was advised to maintain a low fat, low cholesterol diet.She was encouraged to maintain a regular cardiovascular exercise program. Lab Results Component Value Date CHOL 282 (H) 10/07/2022 CHOL 240 (H) 10/08/2019 CHOL 256 (H) 10/04/2018 Lab Results Component Value Date HDL 76 10/07/2022 HDL 59 10/08/2019 HDL 66 10/04/2018 Lab Results Component Value Date LDLCALC 187 (H) 10/07/2022 LDL 155 (H) 10/08/2019 LDL 166 (H) 10/04/2018 Lab Results Component Value Date TRIG 97 10/07/2022 TRIG 131 10/08/2019 TRIG 111 10/04/2018 Recurrent right knee instability 08/31/2021 Assessment & Plan (12/06/2023 7:31 PM CDT): R knee has been hurting more than usual the past several weeks. No recent injury. Feels that it will give out. Xray from 2020 showed minimal OA and small effusion. Today I cannot detect a definite effusion on exam. SHE has been wearing a soft brace with some relief. Will get updated xray, consider MRI/PT next. Assessment & Plan (10/10/2022 7:23 PM CDT): -10/06/2022,Chronic,con't knee exercises,con't ibuprofen,stable,followed by rheumatology,was counseled regarding importance of weight loss. Assessment & Plan (10/01/2021 7:54 AM SALES ENGINEER ACCOUNT MANAGER): Right knee mri 08/2021 showed only a small manning cyst. Assessment & Plan (08/31/2021 4:57 PM SALES ENGINEER ACCOUNT MANAGER): Will check rt knee xray and mri. Pt has rt knee instability. Class 1 obesity due to exces s calories with serious comorbidity and body mass index (BMI) of 30.0 to 30.9 in adult 08/09/2021 Assessment & Plan (03/16/2025 11:04 PM CDT): -04/01/2021,chronic,improving,was counseled regarding importance of weight loss. Discussed the patient's BMI. The BMI is above average; BMI management plan is completed. Regular aerobic exercise program discussed. -08/05/2021,chronic,improving,was counseled regarding importance of weight loss.Discussed the patient's BMI.The BMI is above average; BMI management plan is completed.Regular aerobic exercise program discussed. -10/06/2022,chronic,worse,was counseled regarding importance of weight loss.Discussed the patient's BMI.The BMI is above average; BMI management plan is completed.Regular aerobic exercise program discussed. -07/29/2023,chronic,worse,was counseled regarding importance of weight loss.Discussed the patient's BMI.The BMI is above average; BMI management plan is completed.Regular aerobic exercise program discussed. -05/01/2024,chronic,improved,was counseled regarding importance of weight loss.Discussed the patient's BMI.The BMI is above average; BMI management plan is completed.Regular aerobic exercise program discussed. -05/29/2024,chronic,worse,was counseled regarding importance of weight loss.Discussed the patient's BMI.The BMI is above average; BMI management plan is completed.Regular aerobic exercise program discussed. -08/15/2024,chronic,worse,was counseled regarding importance of weight loss.Discussed the patient's BMI.The BMI is above average; BMI management plan is completed.Regular aerobic exercise program discussed. -02/19/2025, chronic, unchanged, discussed dietary changes, weight loss. -03/11/2025, chronic, unchanged, encourage diet changes. Assessment & Plan (02/24/2025 1:54 AM CDT): -04/01/2021,chronic,improving,was counseled regarding importance of weight loss. Discussed the patient's BMI. The BMI is above average; BMI management plan is completed. Regular aerobic exercise program discussed. -08/05/2021,chronic,improving,was counseled regarding importance of weight loss.Discussed the patient's BMI.The BMI is above average; BMI management plan is completed.Regular aerobic exercise program discussed. -10/06/2022,chronic,worse,was counseled regarding importance of weight loss.Discussed the patient's BMI.The BMI is above average; BMI management plan is completed.Regular aerobic exercise program discussed. -07/29/2023,chronic,worse,was counseled regarding importance of weight loss.Discussed the patient's BMI.The BMI is above average; BMI management plan is completed.Regular aerobic exercise program discussed. -05/01/2024,chronic,improved,was counseled regarding importance of weight loss.Discussed the patient's BMI.The BMI is above average; BMI management plan is completed.Regular aerobic exercise program discussed. -05/29/2024,chronic,worse,was counseled regarding importance of weight loss.Discussed the patient's BMI.The BMI is above average; BMI management plan is completed.Regular aerobic exercise program discussed. -08/15/2024,chronic,worse,was counseled regarding importance of weight loss.Discussed the patient's BMI.The BMI is above average; BMI management plan is completed.Regular aerobic exercise program discussed. -02/19/2025, chronic, unchanged, discussed dietary changes, weight loss. Assessment & Plan (12/31/2024 10:18 AM CDT): Chronic, unchanged. Discussed diet and exercise with patient. Reviewed HARRIET and macronutrient counting. Recommend 45% of calories from protein, 30% from carbohyrdates, and 25% from healthy fats. Encouraged to drink 64oz of water per day. Recommend 30-45 minutes of cardiovascular exercise per day. Assessment & Plan (08/19/2024 4:22 PM SALES ENGINEER ACCOUNT MANAGER): -04/01/2021,chronic,improving,was counseled regarding importance of weight loss. Discussed the patient's BMI. The BMI is above average; BMI management plan is completed. Regular aerobic exercise program discussed. -08/05/2021,chronic,improving,was counseled regarding importance of weight loss.Discussed the patient's BMI.The BMI is above average; BMI management plan is completed.Regular aerobic exercise program discussed. -10/06/2022,chronic,worse,was counseled regarding importance of weight loss.Discussed the patient's BMI.The BMI is above average; BMI management plan is completed.Regular aerobic exercise program discussed. -07/29/2023,chronic,worse,was counseled regarding importance of weight loss.Discussed the patient's BMI.The BMI is above average; BMI management plan is completed.Regular aerobic exercise program discussed. -05/01/2024,chronic,improved,was counseled regarding importance of weight loss.Discussed the patient's BMI.The BMI is above average; BMI management plan is completed.Regular aerobic exercise program discussed. -05/29/2024,chronic,worse,was counseled regarding importance of weight loss.Discussed the patient's BMI.The BMI is above average; BMI management plan is completed.Regular aerobic exercise program discussed. -08/15/2024,chronic,worse,was counseled regarding importance of weight loss.Discussed the patient's BMI.The BMI is above average; BMI management plan is completed.Regular aerobic exercise program discussed. Assessment & Plan (06/09/2024 11:30 PM SALES ENGINEER ACCOUNT MANAGER): -04/01/2021,chronic,improving,was counseled regarding importance of weight loss. Discussed the patient's BMI. The BMI is above average; BMI management plan is completed. Regular aerobic exercise program discussed. -08/05/2021,chronic,improving,was counseled regarding importance of weight loss.Discussed the patient's BMI.The BMI is above average; BMI management plan is completed.Regular aerobic exercise program discussed. -10/06/2022,chronic,worse,was counseled regarding importance of weight loss.Discussed the patient's BMI.The BMI is above average; BMI management plan is completed.Regular aerobic exercise program discussed. -07/29/2023,chronic,worse,was counseled regarding importance of weight loss.Discussed the patient's BMI.The BMI is above average; BMI management plan is completed.Regular aerobic exercise program discussed. -05/01/2024,chronic,improved,was counseled regarding importance of weight loss.Discussed the patient's BMI.The BMI is above average; BMI management plan is completed.Regular aerobic exercise program discussed. -05/29/2024,chronic,worse,was counseled regarding importance of weight loss.Discussed the patient's BMI.The BMI is above average; BMI management plan is completed.Regular aerobic exercise program discussed. Assessment & Plan (05/15/2024 9:02 AM CDT): Chronic, unchanged. Discussed diet and exercise. Assessment & Plan (05/13/2024 6:48 PM CDT): -04/01/2021,chronic,improving,was counseled regarding importance of weight loss. Discussed the patient's BMI. The BMI is above average; BMI management plan is completed. Regular aerobic exercise program discussed. -08/05/2021,chronic,improving,was counseled regarding importance of weight loss.Discussed the patient's BMI.The BMI is above average; BMI management plan is completed.Regular aerobic exercise program discussed. -10/06/2022,chronic,worse,was counseled regarding importance of weight loss.Discussed the patient's BMI.The BMI is above average; BMI management plan is completed.Regular aerobic exercise program discussed. -07/29/2023,chronic,worse,was counseled regarding importance of weight loss.Discussed the patient's BMI.The BMI is above average; BMI management plan is completed.Regular aerobic exercise program discussed. -05/01/2024,chronic,improved,was counseled regarding importance of weight loss.Discussed the patient's BMI.The BMI is above average; BMI management plan is completed.Regular aerobic exercise program discussed. Assessment & Plan (08/11/2023 8:43 PM SALES ENGINEER ACCOUNT MANAGER): -04/01/2021,chronic,improving,was counseled regarding importance of weight loss. Discussed the patient's BMI. The BMI is above average; BMI management plan is completed. Regular aerobic exercise program discussed. -08/05/2021,chronic,improving,was counseled regarding importance of weight loss.Discussed the patient's BMI.The BMI is above average; BMI management plan is completed.Regular aerobic exercise program discussed. -10/06/2022,chronic,worse,was counseled regarding importance of weight loss.Discussed the patient's BMI.The BMI is above average; BMI management plan is completed.Regular aerobic exercise program discussed. -07/29/2023,chronic,worse,was counseled regarding importance of weight loss.Discussed the patient's BMI.The BMI is above average; BMI management plan is completed.Regular aerobic exercise program discussed. Assessment & Plan (10/10/2022 7:18 PM CDT): -04/01/2021,chronic,improving,was counseled regarding importance of weight loss. Discussed the patient's BMI. The BMI is above average; BMI management plan is completed. Regular aerobic exercise program discussed. -08/05/2021,chronic,improving,was counseled regarding importance of weight loss.Discussed the patient's BMI.The BMI is above average; BMI management plan is completed.Regular aerobic exercise program discussed. -10/06/2022,chronic,worse,was counseled regarding importance of weight loss.Discussed the patient's BMI.The BMI is above average; BMI management plan is completed.Regular aerobic exercise program discussed. Assessment & Plan (08/09/2021 10:50 PM SALES ENGINEER ACCOUNT MANAGER): -04/01/2021,chronic,improving,was counseled regarding importance of weight loss. Discussed the patient's BMI. The BMI is above average; BMI management plan is completed. Regular aerobic exercise program discussed. -08/05/2021,chronic,improving,was counseled regarding importance of weight loss.Discussed the patient's BMI.The BMI is above average; BMI management plan is completed.Regular aerobic exercise program discussed. Fatigue 07/30/2020 Assessment & Plan (02/24/2025 1:55 AM CDT): -04/01/2021,chronic,improving with exercising,herbal supplements. -08/05/2021,chronic,improved with exercising,herbal supplements. -10/06/2022,chronic,stable,con't exercising,herbal supplements. -05/01/2024,chronic,stable,con't exercising,herbal supplements. -02/19/2025, chronic, worse, possibly related to sleep apnea, recommended sleep study. Lab Results Component Value Date TSH 1.00 12/31/2024 Assessment & Plan (12/31/2024 10:18 AM CDT): Chronic, worsening. Has not had lab work completed. Encouraged to get labs. Assessment & Plan (05/13/2024 6:47 PM CDT): -04/01/2021,chronic,improving with exercising,herbal supplements. -08/05/2021,chronic,improved with exercising,herbal supplements. -10/06/2022,chronic,stable,con't exercising,herbal supplements. -05/01/2024,chronic,stable,con't exercising,herbal supplements. Lab Results Component Value Date TSH 2.53 12/06/2023 Assessment & Plan (10/10/2022 7:25 PM CDT): -04/01/2021,chronic,improving with exercising,herbal supplements. -08/05/2021,chronic,improved with exercising,herbal supplements. -10/06/2022,chronic,stable,con't exercising,herbal supplements. Lab Results Component Value Date TSH 0.61 10/07/2022 Assessment & Plan (08/09/2021 10:48 PM SALES ENGINEER ACCOUNT MANAGER): -04/01/2021,chronic,improving with exercising,herbal supplements. -08/05/2021,chronic,improved with exercising,herbal supplements. Assessment & Plan (06/08/2021 3:59 PM SALES ENGINEER ACCOUNT MANAGER): Check b12 Assessment & Plan (04/04/2021 11:35 PM CDT): -04/01/2021,chronic,improving with exercising,herbal supplements. Assessment & Plan (01/02/2021 12:45 PM CDT): B12 and CBC normal. Advised to schedule sleep study. Check tsh. Assessment & Plan (12/01/2020 8:27 AM CDT): B12 and CBC normal. Advised to schedule sleep study. Assessment & Plan (10/29/2020 7:34 AM CDT): Has not done the ordered labs. Will check b12, this is 2nd referral. tsh checked by pcp per pt. Was also referred for sleeps study at lat visit. Assessment & Plan (07/30/2020 2:59 PM SALES ENGINEER ACCOUNT MANAGER): Check sleep study. Check cbc and vit b12. In past pcp had her on IM B12. Snores 07/30/2020 Assessment & Plan (02/24/2025 1:57 AM CDT): -04/01/2021,chronic,needs sleep study. -08/05/2021,chronic,unchanged,needs sleep study. -10/06/2022,chronic,unchanged,needs sleep study,was counseled regarding importance of weight loss.. -02/19/2025, chronic, unchanged, recommend sleep study. Assessment & Plan (12/01/2022 6:10 PM CDT): Hx of snoring and fatigue. Was referred for sleep study 12/2021 but did not do it. Seen today with dr porter and pt again advised to schedule sleep study. If she has a sleep disorder this can cause fatigue and worsen her fibromyalgia. Assessment & Plan (10/10/2022 7:24 PM CDT): -04/01/2021,chronic,needs sleep study. -08/05/2021,chronic,unchanged,needs sleep study. -10/06/2022,chronic,unchanged,needs sleep study,was counseled regarding importance of weight loss.. Assessment & Plan (01/07/2022 6:51 PM CDT): Advised to get sleep study, referral to pulm given to pt. Assessment & Plan (08/09/2021 10:47 PM SALES ENGINEER ACCOUNT MANAGER): -04/01/2021,chronic,needs sleep study. -08/05/2021,chronic,unchanged,needs sleep study. Assessment & Plan (04/04/2021 11:33 PM CDT): -04/01/2021,chronic,needs sleep study. Assessment & Plan (07/30/2020 2:59 PM SALES ENGINEER ACCOUNT MANAGER): Check sleep study, referred pt to dr dior for eval/tx. 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 -01/22/2020,chronic,has returned to work,wears PPE. -04/01/2021,chronic,unchanged,wears PPE. -08/05/2021,chronic,unchanged,wears PPE. -10/06/2022,chronic,unchanged,wears PPE. 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 -01/22/2020,chronic,has returned to work,wears PPE. -04/01/2021,chronic,unchanged,wears PPE. -08/05/2021,chronic,unchanged,wears PPE. 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 -01/22/2020,chronic,has returned to work,wears PPE. -04/01/2021,chronic,unchanged,wears PPE. 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 -01/22/2020,chronic,has returned to work,wears PPE. 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 Due to covid 19 pandemic will have her stop working and re-evaluate in 2 months. Anxiety 06/04/2019 Assessment & Plan (06/09/2024 11:28 PM SALES ENGINEER ACCOUNT MANAGER): -01/22/2020,chronic,con't buspar 5mg tid,has family stressors,denies suicidal and homicidal ideations.She was encouraged to maintain a regular cardiovascular exercise program. -04/01/2021,chronic,improved,off buspar 5mg tid,denies suicidal and homicidal ideations.She was encouraged to maintain a regular cardiovascular exercise program. -08/05/2021,chronic,stable,off buspar 5mg tid,denies suicidal and homicidal ideations.She was encouraged to maintain a regular cardiovascular exercise program. -10/06/2022,chronic,stable,off buspar 5mg tid,denies suicidal and homicidal ideations.She was encouraged to maintain a regular cardiovascular exercise program. -05/01/2024,chronic,stable,denies suicidal and homicidal ideations.She was encouraged to maintain a regular cardiovascular exercise program. -05/29/2024,chronic,stable,denies SI/HI ideations,maintain a regular cardiovascular exercise program. Assessment & Plan (05/13/2024 6:45 PM CDT): -01/22/2020,chronic,con't buspar 5mg tid,has family stressors,denies suicidal and homicidal ideations.She was encouraged to maintain a regular cardiovascular exercise program. -04/01/2021,chronic,improved,off buspar 5mg tid,denies suicidal and homicidal ideations.She was encouraged to maintain a regular cardiovascular exercise program. -08/05/2021,chronic,stable,off buspar 5mg tid,denies suicidal and homicidal ideations.She was encouraged to maintain a regular cardiovascular exercise program. -10/06/2022,chronic,stable,off buspar 5mg tid,denies suicidal and homicidal ideations.She was encouraged to maintain a regular cardiovascular exercise program. -05/01/2024,chronic,stable,denies suicidal and homicidal ideations.She was encouraged to maintain a regular cardiovascular exercise program. Assessment & Plan (10/10/2022 7:18 PM CDT): -01/22/2020,chronic,con't buspar 5mg tid,has family stressors,denies suicidal and homicidal ideations.She was encouraged to maintain a regular cardiovascular exercise program. -04/01/2021,chronic,improved,off buspar 5mg tid,denies suicidal and homicidal ideations.She was encouraged to maintain a regular cardiovascular exercise program. -08/05/2021,chronic,stable,off buspar 5mg tid,denies suicidal and homicidal ideations.She was encouraged to maintain a regular cardiovascular exercise program. -10/06/2022,chronic,stable,off buspar 5mg tid,denies suicidal and homicidal ideations.She was encouraged to maintain a regular cardiovascular exercise program. Assessment & Plan (08/09/2021 10:44 PM SALES ENGINEER ACCOUNT MANAGER): -01/22/2020,chronic,con't buspar 5mg tid,has family stressors,denies suicidal and homicidal ideations.She was encouraged to maintain a regular cardiovascular exercise program. -04/01/2021,chronic,improved,off buspar 5mg tid,denies suicidal and homicidal ideations.She was encouraged to maintain a regular cardiovascular exercise program. -08/05/2021,chronic,stable,off buspar 5mg tid,denies suicidal and homicidal ideations.She was encouraged to maintain a regular cardiovascular exercise program. Assessment & Plan (04/04/2021 11:22 PM CDT): -01/22/2020,chronic,con't buspar 5mg tid,has family stressors,denies suicidal and homicidal ideations.She was encouraged to maintain a regular cardiovascular exercise program. -04/01/2021,chronic,improved,off buspar 5mg tid,denies suicidal and homicidal ideations.She was encouraged to maintain a regular cardiovascular exercise program. Assessment & Plan (01/22/2020 11:57 AM CDT): -01/22/2020,chronic,con't buspar 5mg tid,has family stressors,denies suicidal and homicidal ideations.She was encouraged to maintain a regular cardiovascular exercise program. Assessment & Plan (11/09/2019 4:08 PM CDT): -chronic,has family stressors,denies suicidal and homicidal ideations.Patient was encouraged to maintain a regular cardiovascular exercise program. Assessment & Plan (09/26/2019 11:45 PM SALES ENGINEER ACCOUNT MANAGER): -chronic,has family stressors,denies suicidal and homicidal ideations.Patient was encouraged to maintain a regular cardiovascular exercise program. Assessment & Plan (09/16/2019 7:52 PM SALES ENGINEER ACCOUNT MANAGER): -chronic,has family stressors,denies suicidal and homicidal ideations.Patient was encouraged to maintain a regular cardiovascular exercise program. Assessment & Plan (06/10/2019 9:52 AM SALES ENGINEER ACCOUNT MANAGER): -new,start buspar,has family stressors,denies suicidal and homicidal ideations.Patient was encouraged to maintain a regular cardiovascular exercise program. Multiple food allergies 02/24/2018 Assessment & Plan (02/24/2025 1:56 AM CDT): -01/22/2020,chronic,milk,yeast,shrimp allergies.take antihistamine daily. -04/01/2021,chronic,milk,yeast,shrimp allergie,con't antihistamine daily. -08/05/2021,chronic,milk,yeast,shrimp allergies,con't antihistamine daily. -10/06/2022,chronic,unchanged,milk,yeast,shrimp allergies,con't antihistamine daily. -05/01/2024,,chronic,unchanged,milk,yeast,shrimp allergies,con't antihistamine daily. -05/29/2024,chronic,unchanged,milk,yeast,shrimp allergies,con't antihistamine daily. -08/15/2024,chronic,unchanged,milk,yeast,shrimp allergies,con't antihistamine daily. -02/19/2025, chronic, unchanged, continue antihistamine daily. Assessment & Plan (08/19/2024 4:19 PM SALES ENGINEER ACCOUNT MANAGER): -01/22/2020,chronic,milk,yeast,shrimp allergies.take antihistamine daily. -04/01/2021,chronic,milk,yeast,shrimp allergie,con't antihistamine daily. -08/05/2021,chronic,milk,yeast,shrimp allergies,con't antihistamine daily. -10/06/2022,chronic,unchanged,milk,yeast,shrimp allergies,con't antihistamine daily. -05/01/2024,,chronic,unchanged,milk,yeast,shrimp allergies,con't antihistamine daily. -05/29/2024,chronic,unchanged,milk,yeast,shrimp allergies,con't antihistamine daily. -08/15/2024,chronic,unchanged,milk,yeast,shrimp allergies,con't antihistamine daily. Assessment & Plan (06/09/2024 11:28 PM SALES ENGINEER ACCOUNT MANAGER): -01/22/2020,chronic,milk,yeast,shrimp allergies.take antihistamine daily. -04/01/2021,chronic,milk,yeast,shrimp allergie,con't antihistamine daily. -08/05/2021,chronic,milk,yeast,shrimp allergies,con't antihistamine daily. -10/06/2022,chronic,unchanged,milk,yeast,shrimp allergies,con't antihistamine daily. -05/01/2024,,chronic,unchanged,milk,yeast,shrimp allergies,con't antihistamine daily. -05/29/2024,chronic,unchanged,milk,yeast,shrimp allergies,con't antihistamine daily. Assessment & Plan (05/13/2024 6:48 PM CDT): -01/22/2020,chronic,milk,yeast,shrimp allergies.take antihistamine daily. -04/01/2021,chronic,milk,yeast,shrimp allergie,con't antihistamine daily. -08/05/2021,chronic,milk,yeast,shrimp allergies,con't antihistamine daily. -10/06/2022,chronic,unchanged,milk,yeast,shrimp allergies,con't antihistamine daily. -05/01/2024,,chronic,unchanged,milk,yeast,shrimp allergies,con't antihistamine daily. Assessment & Plan (10/10/2022 7:10 PM CDT): -01/22/2020,chronic,milk,yeast,shrimp allergies.take antihistamine daily. -04/01/2021,chronic,milk,yeast,shrimp allergie,con't antihistamine daily. -08/05/2021,chronic,milk,yeast,shrimp allergies,con't antihistamine daily. -10/06/2022,chronic,unchanged,milk,yeast,shrimp allergies,con't antihistamine daily. Assessment & Plan (08/09/2021 10:43 PM SALES ENGINEER ACCOUNT MANAGER): -01/22/2020,chronic,milk,yeast,shrimp allergies.take antihistamine daily. -04/01/2021,chronic,milk,yeast,shrimp allergie,con't antihistamine daily. -08/05/2021,chronic,milk,yeast,shrimp allergies,con't antihistamine daily. Assessment & Plan (04/04/2021 11:18 PM CDT): -01/22/2020,chronic,milk,yeast,shrimp allergies.take antihistamine daily. -04/01/2021,chronic,milk,yeast,shrimp allergie,con't antihistamine daily. Assessment & Plan (01/22/2020 12:02 PM CDT): -01/22/2020,chronic,milk,yeast,shrimp allergies.take antihistamine daily. Assessment & Plan (11/09/2019 4:06 PM CDT): -chronic,milk,yeast,shrimp allergies.take antihistamine daily Assessment & Plan (09/26/2019 11:45 PM SALES ENGINEER ACCOUNT MANAGER): -chronic,milk,yeast,shrimp allergies.take antihistamine daily Assessment & Plan (09/16/2019 7:51 PM SALES ENGINEER ACCOUNT MANAGER): -chronic,milk,yeast,shrimp allergies.take antihistamine daily Assessment & Plan (10/10/2018 8:00 PM CDT): -milk,yeast,shrimp allergies.take antihistamine daily Assessment & Plan (06/09/2018 11:22 PM SALES ENGINEER ACCOUNT MANAGER): -milk,yeast,shrimp allergies.take antihistamine daily Assessment & Plan (05/20/2018 10:03 PM CDT): -milk,yeast,shrimp allergies.take antihistamine daily Assessment & Plan (02/24/2018 9:13 PM CDT): -reviewed lab results with pt,milk,yeast,shrimp allergies.take antihistamine daily Encounter for long-term (current) use of medicat ions 09/01/2017 Assessment & Plan (01/23/2025 8:33 AM CDT): SE to plaquenil Elevated lft's with mtx Abd pain with Imuran SE to plaquenil Avise panel 11/10---+ LUIS ANTONIO and + SS-A (no sicca). +arthritis and nose ulcers. Assessment & Plan (09/26/2024 11:38 AM SALES ENGINEER ACCOUNT MANAGER): SE to plaquenil Elevated lft's with mtx Abd pain with Imuran SE to plaquenil Avise panel 11/10---+ LUIS ANTONIO and + SS-A (no sicca). +arthritis and nose ulcers. Assessment & Plan (08/01/2024 8:32 AM SALES ENGINEER ACCOUNT MANAGER): SE to plaquenil Elevated lft's with mtx Abd pain with Imuran SE to plaquenil Avise panel 11/10---+ LUIS ANTONIO and + SS-A (no sicca). +arthritis and nose ulcers. Assessment & Plan (06/25/2024 8:39 AM SALES ENGINEER ACCOUNT MANAGER): SE to plaquenil Elevated lft's with mtx Abd pain with Imuran SE to plaquenil Avise panel 11/10---+ LUIS ANTONIO and + SS-A (no sicca). +arthritis and nose ulcers. Assessment & Plan (05/25/2024 8:45 AM CDT): SE to plaquenil Elevated lft's with mtx Abd pain with Imuran SE to plaquenil Avise panel 11/10---+ LUIS ANTONIO and + SS-A (no sicca). +arthritis and nose ulcers. Assessment & Plan (04/04/2024 12:54 PM CDT): SE to plaquenil Elevated lft's with mtx Abd pain with Imuran SE to plaquenil Avise panel 11/10---+ LUIS ANTONIO and + SS-A (no sicca). +arthritis and nose ulcers. Assessment & Plan (01/05/2024 8:37 AM CDT): SE to plaquenil Elevated lft's with mtx Abd pain with Imuran SE to plaquenil Avise panel 11/10---+ LUIS ANTONIO and + SS-A (no sicca). +arthritis and nose ulcers. Assessment & Plan (07/01/2023 8:40 AM SALES ENGINEER ACCOUNT MANAGER): SE to plaquenil Elevated lft's with mtx Abd pain with Imuran SE to plaquenil Avise panel 11/10---+ LUIS ANTONIO and + SS-A (no sicca). +arthritis and nose ulcers. Assessment & Plan (11/29/2022 8:37 AM CDT): SE to plaquenil Elevated lft's with mtx Abd pain with Imuran SE to plaquenil Avise panel 11/10---+ LUIS ANTONIO and + SS-A (no sicca). +arthritis and nose ulcers. Assessment & Plan (09/03/2022 12:43 PM SALES ENGINEER ACCOUNT MANAGER): SE to plaquenil Elevated lft's with mtx Abd pain with Imuran SE to plaquenil Avise panel 11/10---+ LUIS ANTONIO and + SS-A (no sicca). +arthritis and nose ulcers. Assessment & Plan (03/31/2022 7:54 AM CDT): SE to plaquenil Elevated lft's with mtx Abd pain with Imuran SE to plaquenil Avise panel 11/10---+ LUIS ANTONIO and + SS-A (no sicca). +arthritis and nose ulcers. Assessment & Plan (01/07/2022 8:35 AM CDT): SE to plaquenil Elevated lft's with mtx Abd pain with Imuran SE to plaquenil Avise panel 11/10---+ LUIS ANTONIO and + SS-A (no sicca). +arthritis and nose ulcers. Assessment & Plan (10/01/2021 7:53 AM SALES ENGINEER ACCOUNT MANAGER): SE to plaquenil Elevated lft's with mtx Abd pain with Imuran SE to plaquenil Avise panel 11/10---+ LUIS ANTONIO and + SS-A (no sicca). +arthritis and nose ulcers. Assessment & Plan (08/31/2021 3:24 PM SALES ENGINEER ACCOUNT MANAGER): SE to plaquenil Elevated lft's with mtx Abd pain with Imuran SE to plaquenil Avise panel 11/10---+ LUIS ANTONIO and + SS-A (no sicca). +arthritis and nose ulcers. Assessment & Plan (06/08/2021 3:58 PM SALES ENGINEER ACCOUNT MANAGER): SE to plaquenil Elevated lft's with mtx Abd pain with Imuran SE to plaquenil Avise panel 11/10---+ LUIS ANTONIO and + SS-A (no sicca). +arthritis and nose ulcers. Assessment & Plan (05/06/2021 2:31 PM CDT): SE to plaquenil Elevated lft's with mtx Abd pain with Imuran SE to plaquenil Avise panel 11/10---+ LUIS ANTONIO and + SS-A (no sicca). +arthritis and nose ulcers. Assessment & Plan (01/02/2021 12:45 PM CDT): SE to plaquenil Elevated lft's with mtx Abd pain with Imuran SE to plaquenil Avise panel 11/10---+ LUIS ANTONIO and + SS-A (no sicca). +arthritis and nose ulcers. Assessment & Plan (12/01/2020 8:26 AM CDT): SE to plaquenil Elevated lft's with mtx Abd pain with Imuran SE to plaquenil Avise panel 11/10---+ LUIS ANTONIO and + SS-A (no sicca). +arthritis and nose ulcers. Assessment & Plan (10/29/2020 7:33 AM CDT): SE to plaquenil Elevated lft's with mtx Abd pain with Imuran SE to plaquenil Avise panel 11/10---+ LUIS ANTONIO and + SS-A (no sicca). +arthritis and nose ulcers. Assessment & Plan (06/04/2020 7:32 AM SALES ENGINEER ACCOUNT MANAGER): SE to plaquenil Elevated lft's with mtx Abd pain with Imuran SE to plaquenil Avise panel 11/10---+ LUIS ANTONIO and + SS-A (no sicca). +arthritis and nose ulcers. Assessment & Plan (03/03/2020 8:52 AM CDT): SE to plaquenil Elevated lft's with mtx Abd pain with Imuran SE to plaquenil Avise panel 11/10---+ LUIS ANTONIO and + SS-A (no sicca). +arthritis and nose ulcers. Assessment & Plan (11/05/2019 7:21 AM CDT): SE to plaquenil Elevated lft's with mtx Abd pain with Imuran SE to plaquenil Avise panel 11/10---+ LUIS ANTONIO and + SS-A (no sicca). +arthritis and nose ulcers. Assessment & Plan (06/27/2019 8:47 AM SALES ENGINEER ACCOUNT MANAGER): SE to plaquenil Elevated lft's with mtx Abd pain with Imuran SE to plaquenil Avise panel 11/10---+ LUIS ANTONIO and + SS-A (no sicca). +arthritis and nose ulcers. Assessment & Plan (05/03/2019 11:45 AM CDT): SE to plaquenil Elevated lft's with mtx Abd pain with Imuran SE to plaquenil Avise panel 11/10---+ LUIS ANTONIO and + SS-A (no sicca). +arthritis and nose ulcers. Assessment & Plan (10/23/2018 7:57 AM CDT): SE to plaquenil Elevated lft's with mtx Abd pain with Imuran Chronic pain of both shoulders 07/15/2017 Assessment & Plan (10/10/2022 7:22 PM CDT): -01/22/2020,Chronic,do exercises,stable,followed by rheumatology -04/01/2021,Chronic,con't exercises,con't ibuprofen,stable,followed by rheumatology. -08/05/2021,Chronic,con't exercises,con't ibuprofen,stable,followed by rheumatology. -10/06/2022,Chronic,stable,con't shoulder exercises,con't ibuprofen,followed by rheumatology. Assessment & Plan (08/09/2021 10:46 PM SALES ENGINEER ACCOUNT MANAGER): -01/22/2020,Chronic,do exercises,stable,followed by rheumatology -04/01/2021,Chronic,con't exercises,con't ibuprofen,stable,followed by rheumatology. -08/05/2021,Chronic,con't exercises,con't ibuprofen,stable,followed by rheumatology. Assessment & Plan (04/04/2021 11:29 PM CDT): -01/22/2020,Chronic,do exercises,stable,followed by rheumatology -04/01/2021,Chronic,con't exercises,con't ibuprofen,stable,followed by rheumatology. Assessment & Plan (01/22/2020 12:01 PM CDT): -01/22/2020,Chronic,do exercises,stable,followed by rheumatology Assessment & Plan (11/09/2019 4:07 PM CDT): -Chronic-stable,followed by rheumatology Assessment & Plan (09/26/2019 11:45 PM SALES ENGINEER ACCOUNT MANAGER): Chronic-stable,followed by rheumatology Assessment & Plan (09/16/2019 7:50 PM SALES ENGINEER ACCOUNT MANAGER): Chronic-stable,followed by rheumatology Assessment & Plan (10/10/2018 7:58 PM CDT): Chronic-stable,followed by rheumatology Assessment & Plan (10/06/2017 2:09 PM CDT): Crepitus both shoulders. xr today and begin Pt. Assessment & Plan (07/15/2017 4:55 PM SALES ENGINEER ACCOUNT MANAGER): Will order xrays and PT Chronic pain of both knees 07/15/2017 Assessment & Plan (10/10/2022 7:21 PM CDT): -01/22/2020,Chronic,do exercises,stable,followed by rheumatology -04/01/2021,Chronic,con't exercises,con't ibuprofen,stable,followed by rheumatology. -08/05/2021,Chronic,con't exercises,con't ibuprofen,stable,followed by rheumatology. -10/06/2022,Chronic,con't knee exercises,con't ibuprofen,stable,followed by rheumatology,was counseled regarding importance of weight loss. Assessment & Plan (08/09/2021 10:46 PM SALES ENGINEER ACCOUNT MANAGER): -01/22/2020,Chronic,do exercises,stable,followed by rheumatology -04/01/2021,Chronic,con't exercises,con't ibuprofen,stable,followed by rheumatology. -08/05/2021,Chronic,con't exercises,con't ibuprofen,stable,followed by rheumatology. Assessment & Plan (04/04/2021 11:29 PM CDT): -01/22/2020,Chronic,do exercises,stable,followed by rheumatology -04/01/2021,Chronic,con't exercises,con't ibuprofen,stable,followed by rheumatology. Assessment & Plan (06/04/2020 7:32 AM SALES ENGINEER ACCOUNT MANAGER): Having bilat knee pain and crepitus and states that she can't fully flex knees when she tries to bend down. Did not do the ordered knee xrays or PT. Assessment & Plan (03/03/2020 8:52 AM CDT): Having bilat knee pain and crepitus and states that she can't fully flex knees when she tries to bend down. Did not do the ordered knee xrays or PT. Assessment & Plan (01/22/2020 12:01 PM CDT): -01/22/2020,Chronic,stable,do exercises,followed by rheumatology Assessment & Plan (11/09/2019 4:07 PM CDT): -Chronic-stable,followed by rheumatology Assessment & Plan (09/26/2019 11:45 PM SALES ENGINEER ACCOUNT MANAGER): Chronic-stable,followed by rheumatology Assessment & Plan (09/16/2019 7:50 PM SALES ENGINEER ACCOUNT MANAGER): Chronic-stable,followed by rheumatology Assessment & Plan (06/27/2019 8:47 AM SALES ENGINEER ACCOUNT MANAGER): Having bilat knee pain and crepitus and states that she can't fully flex knees when she tries to bend down. Did not do the ordered knee xrays or PT. Assessment & Plan (05/03/2019 11:39 AM CDT): Having bilat knee pain and crepitus and states that she can't fully flex knees when she tries to bend down. Will xray bilat knees and start PT. Will re-evaluate in 1 month to see if she needs knee steroid inj if PT has not helped. Seen with dr porter. Assessment & Plan (10/10/2018 7:58 PM CDT): Chronic-stable,followed by rheumatology Assessment & Plan (10/06/2017 2:09 PM CDT): Crepitus both knees. Begin Pt. Assessment & Plan (07/15/2017 4:55 PM SALES ENGINEER ACCOUNT MANAGER): Will order xrays and PT Systemic lupus erythematosus 04/15/2017 Overview (12/13/2023): R hand u/s 01/08: Marked synovitis with effusions, synovial thickening, power Doppler signal Multiple side effects to plaquenil (vertigo). 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 +SSA (ro60). 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 Elevated C3. Rest ok. Assessment & Plan (02/24/2025 1:58 AM CDT): -Chronic-con't med regimen,Patient was encouraged to maintain a regular cardiovascular exercise program.followed by rheumatology. -01/22/2020,Chronic,con't med regimen,was encouraged to maintain a regular cardiovascular exercise program.followed by rheumatology. -04/01/2021,Chronic,con't med regimen,con't cellcept 500mg bid,was encouraged to maintain a regular cardiovascular exercise program,followed by rheumatology.She's had allergic rxns to azathioprine,hydroxychloroquine,high risk of having allergic rxn to COVID VACCINE. -08/05/2021,Chronic,con't med regimen,con't cellcept 500mg bid,was encouraged to maintain a regular cardiovascular exercise program,followed by rheumatology.She's had allergic rxns to azathioprine,hydroxychloroquine,high risk of having allergic rxn to COVID VACCINE. -10/06/2022,Chronic,stable,con't med regimen,con't cellcept 500mg bid,was encouraged to maintain a regular cardiovascular exercise program,followed by rheumatology.She's had allergic rxns to azathioprine,hydroxychloroquine,high risk of having allergic rxn to COVID VACCINE. -05/01/2024,Chronic,stable,con't med regimen,con't cellcept 500mg bid,was encouraged to maintain a regular cardiovascular exercise program,followed by rheumatology.She's had allergic rxns to azathioprine,hydroxychloroquine,high risk of having allergic rxn to COVID VACCINE. -08/15/2024,Chronic,stable,con't med regimen,con't cellcept 500mg bid,was encouraged to maintain a regular cardiovascular exercise program,followed by rheumatology.She's had allergic rxns to azathioprine,hydroxychloroquine,high risk of having allergic rxn to COVID VACCINE. -02/19/2025, chronic,con't cellcept 500mg bid,maintain a regular cardiovascular exercise program,followed by rheumatology.She's had allergic rxns to azathioprine,hydroxychloroquine,high risk of having allergic rxn to COVID VACCINE. Assessment & Plan (01/23/2025 3:45 PM CDT): Low cdai. Doing well on present meds. Check labs today. Continue cellcept 1000mg po every day. Her pcp just started her on ozempic for weight loss. [facility] panel from 11/2023 showed strong positive LUIS ANTONIO by ALONSO, neg by Hep-2. +SSA (ro60). 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 Elevated C3. Reviewed [facility] panel results with pt. No hx of clots. She just had a javier 7 weeks ago, no on hrt. Does not smoke. She knows to not start hrt. Previous history/labs: [facility] panel 11/10---+ LUIS ANTONIO and + SS-A (no sicca). Has hx of +arthritis and nose ulcers. Assessment & Plan (09/26/2024 2:13 PM SALES ENGINEER ACCOUNT MANAGER): Low mod cdai. Recommended increasing cellcept but she declines. Informed that she still has joint swelling despite not having joint pain and her sle is not under control. Check labs today. Continue cellcept 1000mg po every day. [facility] panel from 11/2023 showed strong positive LUIS ANTONIO by ALONSO, neg by Hep-2. +SSA (ro60). 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 Elevated C3. Reviewed [facility] panel results with pt. No hx of clots. She just had a javier 7 weeks ago, no on hrt. Does not smoke. She knows to not start hrt. Previous history/labs: [facility] panel 11/10---+ LUIS ANTONIO and + SS-A (no sicca). Has hx of +arthritis and nose ulcers. Assessment & Plan (08/19/2024 4:19 PM SALES ENGINEER ACCOUNT MANAGER): -Chronic-con't med regimen,Patient was encouraged to maintain a regular cardiovascular exercise program.followed by rheumatology. -01/22/2020,Chronic,con't med regimen,was encouraged to maintain a regular cardiovascular exercise program.followed by rheumatology. -04/01/2021,Chronic,con't med regimen,con't cellcept 500mg bid,was encouraged to maintain a regular cardiovascular exercise program,followed by rheumatology.She's had allergic rxns to azathioprine,hydroxychloroquine,high risk of having allergic rxn to COVID VACCINE. -08/05/2021,Chronic,con't med regimen,con't cellcept 500mg bid,was encouraged to maintain a regular cardiovascular exercise program,followed by rheumatology.She's had allergic rxns to azathioprine,hydroxychloroquine,high risk of having allergic rxn to COVID VACCINE. -10/06/2022,Chronic,stable,con't med regimen,con't cellcept 500mg bid,was encouraged to maintain a regular cardiovascular exercise program,followed by rheumatology.She's had allergic rxns to azathioprine,hydroxychloroquine,high risk of having allergic rxn to COVID VACCINE. -05/01/2024,Chronic,stable,con't med regimen,con't cellcept 500mg bid,was encouraged to maintain a regular cardiovascular exercise program,followed by rheumatology.She's had allergic rxns to azathioprine,hydroxychloroquine,high risk of having allergic rxn to COVID VACCINE. -08/15/2024,Chronic,stable,con't med regimen,con't cellcept 500mg bid,was encouraged to maintain a regular cardiovascular exercise program,followed by rheumatology.She's had allergic rxns to azathioprine,hydroxychloroquine,high risk of having allergic rxn to COVID VACCINE. Assessment & Plan (08/01/2024 8:33 AM SALES ENGINEER ACCOUNT MANAGER): Although her joint swelling has improved she has been feeling very fatigued and run down. Could be due to her asthma flaring also and not sleeping well. Her allergies and asthma are also flaring up. Her pcp sent a rx for a nebulizer for her to use. Will take her off work until 06/26/2024. Check labs today. Continue cellcept 1000mg po every day. Will re-evaluate her in 1 month. [facility] panel from 11/2023 showed strong positive LUIS ANTONIO by ALONSO, neg by Hep-2. +SSA (ro60). 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 Elevated C3. Reviewed [facility] panel results with pt. No hx of clots. Advised her iin a past visit to not use hrt when in menopause, use compression stockings when taking long car/airplane trips and try to move around as much as possible. She does not smoke. [facility] panel 11/10---+ LUIS ANTONIO and + SS-A (no sicca). +arthritis and nose ulcers. Assessment & Plan (06/25/2024 8:39 AM SALES ENGINEER ACCOUNT MANAGER): Although her joint swelling has improved she has been feeling very fatigued and run down. Could be due to her asthma flaring also and not sleeping well. Her allergies and asthma are also flaring up. Her pcp sent a rx for a nebulizer for her to use. Will take her off work until 06/26/2024. Check labs today. Continue cellcept 1000mg po every day. Will re-evaluate her in 1 month. [facility] panel from 11/2023 showed strong positive LUIS ANTONIO by ALONSO, neg by Hep-2. +SSA (ro60). 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 Elevated C3. Reviewed [facility] panel results with pt. No hx of clots. Advised her iin a past visit to not use hrt when in menopause, use compression stockings when taking long car/airplane trips and try to move around as much as possible. She does not smoke. [facility] panel 11/10---+ LUIS ANTONIO and + SS-A (no sicca). +arthritis and nose ulcers. Assessment & Plan (05/25/2024 3:07 PM CDT): Although her joint swelling has improved she has been feeling very fatigued and run down. Could be due to her asthma flaring also and not sleeping well. Her allergies and asthma are also flaring up. Her pcp sent a rx for a nebulizer for her to use. Will take her off work until 06/26/2024. Check labs today. Continue cellcept 1000mg po every day. Will re-evaluate her in 1 month. [facility] panel from 11/2023 showed strong positive LUIS ANTONIO by ALONSO, neg by Hep-2. +SSA (ro60). 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 Elevated C3. Reviewed [facility] panel results with pt. No hx of clots. Advised her iin a past visit to not use hrt when in menopause, use compression stockings when taking long car/airplane trips and try to move around as much as possible. She does not smoke. [facility] panel 11/10---+ LUIS ANTONIO and + SS-A (no sicca). +arthritis and nose ulcers. Assessment & Plan (05/13/2024 6:49 PM CDT): -Chronic-con't med regimen,Patient was encouraged to maintain a regular cardiovascular exercise program.followed by rheumatology. -01/22/2020,Chronic,con't med regimen,was encouraged to maintain a regular cardiovascular exercise program.followed by rheumatology. -04/01/2021,Chronic,con't med regimen,con't cellcept 500mg bid,was encouraged to maintain a regular cardiovascular exercise program,followed by rheumatology.She's had allergic rxns to azathioprine,hydroxychloroquine,high risk of having allergic rxn to COVID VACCINE. -08/05/2021,Chronic,con't med regimen,con't cellcept 500mg bid,was encouraged to maintain a regular cardiovascular exercise program,followed by rheumatology.She's had allergic rxns to azathioprine,hydroxychloroquine,high risk of having allergic rxn to COVID VACCINE. -10/06/2022,Chronic,stable,con't med regimen,con't cellcept 500mg bid,was encouraged to maintain a regular cardiovascular exercise program,followed by rheumatology.She's had allergic rxns to azathioprine,hydroxychloroquine,high risk of having allergic rxn to COVID VACCINE. -05/01/2024,Chronic,stable,con't med regimen,con't cellcept 500mg bid,was encouraged to maintain a regular cardiovascular exercise program,followed by rheumatology.She's had allergic rxns to azathioprine,hydroxychloroquine,high risk of having allergic rxn to COVID VACCINE. Assessment & Plan (04/04/2024 5:46 PM CDT): Mod cdai. Once again she decreased her cellcept dose, only taking 1 tab po every day of cellcept. Strongly encouraged her again to increase dose to at least 1000 mg po every day. She was strongly advised to minimize sun exposure, use spf with titanium or zinc qhour if in sun and use protective clothing. [facility] panel from 11/2023 showed strong positive LUIS ANTONIO by ALONSO, neg by Hep-2. +SSA (ro60). 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 Elevated C3. Reviewed [facility] panel results with pt. No hx of clots. Advised her to not use hrt when in menopause, use compression stockings when taking long car/airplane trips and try to move around as much as possible. She does not smoke. Check labs today. [facility] panel 11/10---+ LUIS ANTONIO and + SS-A (no sicca). +arthritis and nose ulcers. Assessment & Plan (01/05/2024 4:38 PM CDT): Low cdai today. Continue cellcept to 500 mg po bid. Since cdai is low today no need to add benlsyta, we have discussed this with pt in past that if she flares up this will be the next tx option. She is going [place] to see her son finishing boot camp so will send in a short course of low dose prednisone to have on hand in case she flares up. She was strongly advised to minimize sun exposure, use spf with titanium or zinc qhour if in sun and use protective clothing. [facility] panel from 11/2023 showed strong positive LUIS ANTONIO by ALONSO, neg by Hep-2. +SSA (ro60). 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 Elevated C3. Reviewed [facility] panel results with pt. No hx of clots. Advised her to not use hrt when in menopause, use compression stockings when taking long car/airplane trips and try to move around as much as possible. She does not smoke. Check labs today. [facility] panel 11/10---+ LUIS ANTONIO and + SS-A (no sicca). +arthritis and nose ulcers. Assessment & Plan (12/06/2023 7:30 PM CDT): Cdai = 34 Last seen in 12/14. At last visit was advised to increase cellcept to 1500mg daily. Today she admits to not taking med as prescribed and has been feeling like she is in a flare for the past several weeks. Having widespread pain and tenderness, increased fatigue/malaise/myalgias, and also sores in nose. Will refill triamcinolone paste to use on oral/nasal ulcers as this has helped in the past. Will get some updated labs today and recheck [facility]. [facility] panel 11/10---+ LUIS ANTONIO and + SS-A (no sicca). +arthritis and nose ulcers Advise restarting cellcept at 500mg BID dose. Consider increase next. She also asked about Benlysta IV and we briefly reviewed this as a possible future option which may help improve compliance as well. Will discuss more next. Pt would like to do IM kenalog 100mg today as this always helps. Also discussed that some of her widespread pain may be due to fibromyalgia. Can re-eval next visit once she is back on cellcept and after receiving IM kenalog today. F/u [address] Seaman. Assessment & Plan (07/01/2023 8:40 AM SALES ENGINEER ACCOUNT MANAGER): Mod cdai. Seen with dr porter. Advised pt to increase cellcept to 1500mg po every day. Briefly discussed adding benlysta iv if this does not help or she has SE to higher doses of cellcept. Check labs today. [facility] panel 11/10---+ LUIS ANTONIO and + SS-A (no sicca). +arthritis and nose ulcers. Assessment & Plan (12/01/2022 2:11 PM CDT): Mod cdai. Seen with dr porter. Advised pt to increase cellcept to 1500mg po every day. Briefly discussed adding benlysta iv if this does not help or she has SE to higher doses of cellcept. Check labs today. [facility] panel 11/10---+ LUIS ANTONIO and + SS-A (no sicca). +arthritis and nose ulcers. Assessment & Plan (10/10/2022 7:19 PM CDT): -Chronic-con't med regimen,Patient was encouraged to maintain a regular cardiovascular exercise program.followed by rheumatology. -01/22/2020,Chronic,con't med regimen,was encouraged to maintain a regular cardiovascular exercise program.followed by rheumatology. -04/01/2021,Chronic,con't med regimen,con't cellcept 500mg bid,was encouraged to maintain a regular cardiovascular exercise program,followed by rheumatology.She's had allergic rxns to azathioprine,hydroxychloroquine,high risk of having allergic rxn to COVID VACCINE. -08/05/2021,Chronic,con't med regimen,con't cellcept 500mg bid,was encouraged to maintain a regular cardiovascular exercise program,followed by rheumatology.She's had allergic rxns to azathioprine,hydroxychloroquine,high risk of having allergic rxn to COVID VACCINE. -10/06/2022,Chronic,stable,con't med regimen,con't cellcept 500mg bid,was encouraged to maintain a regular cardiovascular exercise program,followed by rheumatology.She's had allergic rxns to azathioprine,hydroxychloroquine,high risk of having allergic rxn to COVID VACCINE. Assessment & Plan (09/03/2022 5:36 PM SALES ENGINEER ACCOUNT MANAGER): Low cdai. Doing well on cellcept. Only takes 1000mg po every day, in past e prescribed more but she has decreased dose on her own and doing well on it so will continue it. Will check labs today and continue present meds. Check labs today. [facility] panel 11/10---+ LUIS ANTONIO and + SS-A (no sicca). +arthritis and nose ulcers. Assessment & Plan (03/31/2022 3:02 PM CDT): mod cdai. Today having a mild flare but until recently she felt that she was doing well on cellcept alone. Due to burden of dz will give her 100mg of triamcinolone IM today, discussed risks and se of systemic steroids. No hx of dm. Briefly discussed benlysta iv in case she starts having more flares, she is to let us know if she has moreflares. Is doing well on mycophenolate 1000mg bid otherwise so will continue it. Seen with dr porter. Will check labs today and continue present meds. Having insomnia, pcp has ordered sleep study, to also ask pcp if she can have any sleep aids. Had myalgias at last visit and lab did not check cpk and aldolase. Will check them today. [facility] panel 11/10---+ LUIS ANTONIO and + SS-A (no sicca). +arthritis and nose ulcers. Assessment & Plan (01/07/2022 6:45 PM CDT): Low cdai. Is doing well on mycophenolate 1000mg bid. Will check labs today and continue present meds. Filled out fmla forms for her . When pt flares up he has to stay home and help her do with her ADL's. Papers good from 10/2021-10/2022. [facility] panel 11/10---+ LUIS ANTONIO and + SS-A (no sicca). +arthritis and nose ulcers. Assessment & Plan (10/01/2021 12:45 PM SALES ENGINEER ACCOUNT MANAGER): Images from the original note were not included. Low cdai. Doing well on cellcept 1500mg po bid. Check labs today. Seen with dr porter today. Filled out her FMLA papers until 09/2022. Having some lbp radiating to rt knee, has appt with neuro in [place] this month. Advised pt to see pcp for a sleep study referral since she continues to be fatigued and snores. Seen with dr porter. Rt hand US 04/2021 Rt hand US 11/10 Assessment & Plan (08/31/2021 4:56 PM SALES ENGINEER ACCOUNT MANAGER): Images from the original note were not included. She increased her cellcept on her own to 1500mg bid a week ago. Check labs today. Due to burden of dz will give her 100mg of triamcinolone IM today. Discussed risks and se of systemic steroids. F/u in 1month to recheck labs. To take off work from today x 1 week. Rt hand US 04/2021 Rt hand US 11/10 Assessment & Plan (08/09/2021 10:45 PM SALES ENGINEER ACCOUNT MANAGER): -Chronic-con't med regimen,Patient was encouraged to maintain a regular cardiovascular exercise program.followed by rheumatology. -01/22/2020,Chronic,con't med regimen,was encouraged to maintain a regular cardiovascular exercise program.followed by rheumatology. -04/01/2021,Chronic,con't med regimen,con't cellcept 500mg bid,was encouraged to maintain a regular cardiovascular exercise program,followed by rheumatology.She's had allergic rxns to azathioprine,hydroxychloroquine,high risk of having allergic rxn to COVID VACCINE. -08/05/2021,Chronic,con't med regimen,con't cellcept 500mg bid,was encouraged to maintain a regular cardiovascular exercise program,followed by rheumatology.She's had allergic rxns to azathioprine,hydroxychloroquine,high risk of having allergic rxn to COVID VACCINE. Assessment & Plan (06/08/2021 4:00 PM SALES ENGINEER ACCOUNT MANAGER): Images from the original note were not included. Has not f/u since December. Has not had labs since november. Was supposed to f/u in January after we increased her cellcept. She is on cellcept 1000mg bid, check labs. Flaring up today. High cdai. Due to burden of dz will give her 100mg of triamcinolone IM today. Check labs. Advised pt to f/u q [address] porter. Gave pt triamcinolone dental paste to use or oral ulcers in past, advised her to use it on the oral ulcers. Has used it on nose ulcers but not on her oral ulcers. Check b12 due to her tongue pain. Advised to get covid vaccines. Rt hand US 04/2021 Rt [facility] 11/10 Assessment & Plan (05/06/2021 3:47 PM CDT): Images from the original note were not included. Has not f/u since December. Has not had labs since november. Was supposed to f/u in January after we increased her cellcept. She is on cellcept 1000mg bid, check labs. Flaring up today. High cdai. Due to burden of dz will give her 100mg of triamcinolone IM today. Check labs. Advised pt to f/u q [address] porter. Gave pt triamcinolone dental paste to use or oral ulcers in past, advised her to use it on the oral ulcers. Has used it on nose ulcers but not on her oral ulcers. Check b12 due to her tongue pain. Advised to get covid vaccines. Rt [facility] 11/10 Assessment & Plan (04/04/2021 11:25 PM CDT): -Chronic-con't med regimen,Patient was encouraged to maintain a regular cardiovascular exercise program.followed by rheumatology. -01/22/2020,Chronic,con't med regimen,was encouraged to maintain a regular cardiovascular exercise program.followed by rheumatology. -04/01/2021,Chronic,con't med regimen,con't cellcept 500mg bid,was encouraged to maintain a regular cardiovascular exercise program,followed by rheumatology.She's had allergic rxns to azathioprine,hydroxychloroquine,high risk of having allergic rxn to COVID VACCINE. Assessment & Plan (01/05/2021 3:09 PM CDT): Images from the original note were not included. Mod cdai. She is tolerating cellcept 1000mg po every day. Labs were stable a week ago. Will increase cellcept to 1000mg bid, cbc/cmp in weeks and f/u in 1 month. Advised to get covid vaccines. Rt hand US 11/10 Assessment & Plan (12/01/2020 4:35 PM CDT): Images from the original note were not included. Mod cdai. She is tolerating cellcept 1000mg po every day. Labs were stable a week ago. Will increase cellcept to 1000mg bid, cbc/cmp in 2 months and f/u in 1 month. Advised to get covid vaccines. Rt hand 11/10 Assessment & Plan (10/29/2020 12:18 PM CDT): Images from the original note were not included. High cdai. Has not started her cellcept. Started seeing a chiropractor instead to help heal her lupus she states. Due to burden of disease will give her 100mg of triamcinolone IM today. Recommended that she restarts her cellcept 1500mg po every day and check cbc/cmp in 2 weeks and f/u in 1 month. Strongly advised her to get her covid 19 vaccines but she declines. Check labs today. Refilled her cellcept today. Rt hand 11/10 Assessment & Plan (07/30/2020 2:58 PM SALES ENGINEER ACCOUNT MANAGER): Images from the original note were not included. High cdai. Had covid 19 infection a month ago and stopped her cellcept 1000mg po every day (was on 1000mg bid in past but she decreased dose on her won to 1000mg po every day). If Cxr is clear to restart her cellcept. Check labs today. Seen with Dr Porter today. Rt hand 11/10 Assessment & Plan (06/04/2020 2:05 PM SALES ENGINEER ACCOUNT MANAGER): Images from the original note were not included. Mod cdai. Has hx of quintero and could not tolerate most meds and had se to plaquenil in past. She is tolerating cellcept 1000mg po every day, in past she decreased dose on her own from 1000 mg bid and now flared up last week. Advised her to increase cellcept to 1500mg po every day and f/u in 1 month to recheck labs and cbc/cmp in 2 weeks also. Labs stable 06/13. Declined starting benlysta in past. Labs utd and stable 06/02/2020 except for mild alt elevation. 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 Advised to contact pcp for her advair refill for her asthma and discuss this with pcp also. Rt hand 11/10 Assessment & Plan (03/03/2020 2:07 PM CDT): Images from the original note were not included. Has hx of quintero and could not tolerate most meds and had se to plaquenil in past. She is tolerating cellcept 1000mg po every day, se decreased dose on her own from 1000 mg bid. Labs stable 02/18/2020. Declined starting benlysta in past. Labs utd and stable. 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 Advised to contact pcp for her advair refill for her asthma and discuss this with pcp also. Rt [facility] 11/10 Assessment & Plan (01/22/2020 12:03 PM CDT): -Chronic-con't med regimen,Patient was encouraged to maintain a regular cardiovascular exercise program.followed by rheumatology. -01/22/2020,Chronic,con't med regimen,was encouraged to maintain a regular cardiovascular exercise program.followed by rheumatology. Assessment & Plan (11/09/2019 4:05 PM CDT): -Chronic-con't med regimen,Patient was encouraged to maintain a regular cardiovascular exercise program.followed by rheumatology. Assessment & Plan (11/05/2019 3:22 PM CDT): Images from the original note were not included. Has hx of quintero and could not tolerate most meds and had se to plaquenil in past. She is tolerating cellcept 1000mg po bid. Check labs. Gave pt info on benlysta at last visit to read about in case we need to add this in the future. Recheck rt hand US. Labs utd and stable. Pt to stay off work 11/04-01/11/2020 due to covid 19 pandemic. 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 Rt hand US 11/10 Assessment & Plan (09/26/2019 11:44 PM SALES ENGINEER ACCOUNT MANAGER): Chronic-con't med regimen,Patient was encouraged to maintain a regular cardiovascular exercise program.followed by rheumatology. Assessment & Plan (09/16/2019 7:50 PM SALES ENGINEER ACCOUNT MANAGER): Chronic-con't med regimen,followed by rheumatology. Assessment & Plan (06/28/2019 5:50 PM SALES ENGINEER ACCOUNT MANAGER): Images from the original note were not included. High cdai. Labs stable 06/20/2019. Bilat foot, ankle and hand Xrays and Cxr were nl. Has hx of quintero and could not tolerate most meds and had se to plaquenil in past. She is tolerating cellcept 1500mg every day, so increase it to 1000mg po bid once she is done with antibiotics for her UTI, labs stable 06/20/2019. Check labs in 2 weeks and f/u in 1 month. Gave pt info on benlysta to read about in case we need to add this in the future. Rt hand US 11/10 Assessment & Plan (05/03/2019 11:46 AM CDT): Images from the original note were not included. Mod cdai. Has not been here since 12/2017. She was supposed to f/u in January. Did not get required labs in December, will re-order them. Bilat foot, ankle and hand Xrays and Cxr were nl. Discussed importance of f/u at least q 3 mo and prn. Has hx of quintero and could not tolerate most meds and had se to plaquenil in past. She is tolerating cellcept 1000mg po every day so will increase it to 1500mg po every day. Fu in 1 month. Gave pt info on benlysta to read about in case we need to add this in the future. Seen with dr porter. Rt hand US 11/10 Assessment & Plan (10/23/2018 7:57 AM CDT): Has not been here since 09/2017. Discussed importance of f/u at least q 3 mo and prn. Will recheck xrays, rt hand u/s and serologies to re-evalaute. Has hx of quintero and could not tolerate most meds and had se to plaquenil in past. Assessment & Plan (10/10/2018 8:00 PM CDT): Chronic-con't med regimen,followed by rheumatology. Assessment & Plan (06/09/2018 11:23 PM SALES ENGINEER ACCOUNT MANAGER): Chronic-con't med regimen,followed by rheumatology. Assessment & Plan (01/29/2018 11:00 PM CDT): Chronic-con't med regimen,followed by rheumatology. Assessment & Plan (10/06/2017 2:08 PM CDT): Low cdai with pain in other jts such as shoulders and knees that is likely degenerative but could also be inflammatory. Pt could not tolerate azathioprine or hcq. Due to steatosis, we are avoiding use of mtx or leflunomide. Options are therefore very limited. Pt is desiring to not go on other meds at this time. Will US to see the degree of synovitis. Assessment & Plan (09/18/2017 4:50 PM SALES ENGINEER ACCOUNT MANAGER): Chronic-con't med regimen,followed by rheumatology. Assessment & Plan (07/15/2017 4:55 PM SALES ENGINEER ACCOUNT MANAGER): Last seen in 01/08 and had u/s of R hand/wrist which showed marked synovitis with effusions, thickening, and power doppler. Off plaquenil due to severe vertigo. Off mtx due to fatty liver/elevated LFTs. May try imuran but tpmt heterozygous for poor metabolizer. Would have to keep dose lower. Will begin 50mg daily and check cbc, cmp in [address] Porter. F/u 1 month Other headache syndrome 10/27/2012 Overview (10/28/2016): HEADACHE Assessment & Plan (05/15/2024 9:02 AM CDT): Acute on chronic, this headache started 4 days ago. Headache to temporal area right side. Has tried tylenol and excedrin without relief. Start diclofenac and medrol dose pack. May take zofran for nausea. With increase in frequency and duration of headache and photosensitivity, CT head ordered. If worsening symptoms, may need ER evaluation. Vitamin D deficiency 10/27/2012 Overview (10/28/2016): VITAMIN D DEFICIENCY NOS Assessment & Plan (02/24/2025 1:59 AM CDT): -01/22/2020,Chronic,con't supplement 50,000 unit weekly -04/01/2021,Chronic,con't supplement 50,000 unit weekly. -08/05/2021,Chronic,con't supplement 50,000 unit weekly. -10/06/2022,Chronic,con't supplement 50,000 unit weekly. -05/01/2024,Chronic,con't supplement 50,000 unit weekly. -05/29/2024,Chronic,con't supplement 50,000 unit weekly. -08/15/2024,Chronic,con't supplement 50,000 unit weekly. -02/19/2025, chronic, continue vitamin-D supplement. Assessment & Plan (08/19/2024 4:18 PM SALES ENGINEER ACCOUNT MANAGER): -01/22/2020,Chronic,con't supplement 50,000 unit weekly -04/01/2021,Chronic,con't supplement 50,000 unit weekly. -08/05/2021,Chronic,con't supplement 50,000 unit weekly. -10/06/2022,Chronic,con't supplement 50,000 unit weekly. -05/01/2024,Chronic,con't supplement 50,000 unit weekly. -05/29/2024,Chronic,con't supplement 50,000 unit weekly. -08/15/2024,Chronic,con't supplement 50,000 unit weekly. Assessment & Plan (06/09/2024 11:27 PM SALES ENGINEER ACCOUNT MANAGER): -01/22/2020,Chronic,con't supplement 50,000 unit weekly -04/01/2021,Chronic,con't supplement 50,000 unit weekly. -08/05/2021,Chronic,con't supplement 50,000 unit weekly. -10/06/2022,Chronic,con't supplement 50,000 unit weekly. -05/01/2024,Chronic,con't supplement 50,000 unit weekly. -05/29/2024,Chronic,con't supplement 50,000 unit weekly. Assessment & Plan (05/13/2024 6:49 PM CDT): -01/22/2020,Chronic,con't supplement 50,000 unit weekly -04/01/2021,Chronic,con't supplement 50,000 unit weekly. -08/05/2021,Chronic,con't supplement 50,000 unit weekly. -10/06/2022,Chronic,con't supplement 50,000 unit weekly. -05/01/2024,Chronic,con't supplement 50,000 unit weekly. Assessment & Plan (01/05/2024 4:40 PM CDT): Check vit d, refilled rx. Assessment & Plan (10/10/2022 7:16 PM CDT): -01/22/2020,Chronic,con't supplement 50,000 unit weekly -04/01/2021,Chronic,con't supplement 50,000 unit weekly. -08/05/2021,Chronic,con't supplement 50,000 unit weekly. -10/06/2022,Chronic,con't supplement 50,000 unit weekly. Assessment & Plan (08/09/2021 10:43 PM SALES ENGINEER ACCOUNT MANAGER): -01/22/2020,Chronic,con't supplement 50,000 unit weekly -04/01/2021,Chronic,con't supplement 50,000 unit weekly. -08/05/2021,Chronic,con't supplement 50,000 unit weekly. Assessment & Plan (04/04/2021 11:20 PM CDT): -01/22/2020,Chronic,con't supplement 50,000 unit weekly -04/01/2021,Chronic,con't supplement 50,000 unit weekly. Assessment & Plan (01/22/2020 12:04 PM CDT): -01/22/2020,Chronic,con't supplement 50,000 unit weekly Assessment & Plan (11/09/2019 4:05 PM CDT): -Chronic-con't supplement Assessment & Plan (09/26/2019 11:44 PM SALES ENGINEER ACCOUNT MANAGER): Chronic-con't supplement Assessment & Plan (09/16/2019 7:50 PM SALES ENGINEER ACCOUNT MANAGER): Chronic-con't supplement Assessment & Plan (10/10/2018 7:59 PM CDT): Chronic-con't supplement Assessment & Plan (01/29/2018 11:00 PM CDT): Chronic-con't supplement Assessment & Plan (09/18/2017 4:49 PM SALES ENGINEER ACCOUNT MANAGER): Chronic-con't supplement Asthma 2012 Overview (10/28/2016): Asthma Assessment & Plan (02/24/2025 1:53 AM CDT): -01/22/2020,chronic,Asthma,stable,use albuterol prn,avoid triggers. -04/01/2021,chronic,stable,use albuterol prn,avoid triggers. -08/05/2021,chronic,stable,use albuterol prn,avoid triggers. -10/06/2022,chronic,stable,use albuterol prn,avoid triggers. -05/01/2024,chronic,stable,use albuterol prn,avoid triggers. -05/29/2024,chronic,stable,use albuterol prn,avoid triggers. -08/15/2024,chronic,stable,use albuterol prn,avoid triggers. -02/19/2025, chronic, stable, continue albuterol as needed. Assessment & Plan (08/19/2024 4:18 PM SALES ENGINEER ACCOUNT MANAGER): -01/22/2020,chronic,Asthma,stable,use albuterol prn,avoid triggers. -04/01/2021,chronic,stable,use albuterol prn,avoid triggers. -08/05/2021,chronic,stable,use albuterol prn,avoid triggers. -10/06/2022,chronic,stable,use albuterol prn,avoid triggers. -05/01/2024,chronic,stable,use albuterol prn,avoid triggers. -05/29/2024,chronic,stable,use albuterol prn,avoid triggers. -08/15/2024,chronic,stable,use albuterol prn,avoid triggers. Assessment & Plan (06/09/2024 11:27 PM SALES ENGINEER ACCOUNT MANAGER): -01/22/2020,chronic,Asthma,stable,use albuterol prn,avoid triggers. -04/01/2021,chronic,stable,use albuterol prn,avoid triggers. -08/05/2021,chronic,stable,use albuterol prn,avoid triggers. -10/06/2022,chronic,stable,use albuterol prn,avoid triggers. -05/01/2024,chronic,stable,use albuterol prn,avoid triggers. -05/29/2024,chronic,stable,use albuterol prn,avoid triggers. Assessment & Plan (05/15/2024 9:02 AM CDT): Chronic, stable. Continue albuterol. Requesting nebulizer machine. Order placed. Assessment & Plan (05/13/2024 6:45 PM CDT): -01/22/2020,chronic,Asthma,stable,use albuterol prn,avoid triggers. -04/01/2021,chronic,stable,use albuterol prn,avoid triggers. -08/05/2021,chronic,stable,use albuterol prn,avoid triggers. -10/06/2022,chronic,stable,use albuterol prn,avoid triggers. -05/01/2024,chronic,stable,use albuterol prn,avoid triggers. Assessment & Plan (10/10/2022 7:23 PM CDT): -01/22/2020,chronic,Asthma,stable,use albuterol prn,avoid triggers. -04/01/2021,chronic,stable,use albuterol prn,avoid triggers. -08/05/2021,chronic,stable,use albuterol prn,avoid triggers. -10/06/2022,chronic,stable,use albuterol prn,avoid triggers. Assessment & Plan (08/09/2021 10:47 PM SALES ENGINEER ACCOUNT MANAGER): -01/22/2020,chronic,Asthma,stable,use albuterol prn,avoid triggers. -04/01/2021,chronic,stable,use albuterol prn,avoid triggers. -08/05/2021,chronic,stable,use albuterol prn,avoid triggers. Assessment & Plan (04/04/2021 11:30 PM CDT): -01/22/2020,chronic,Asthma,stable,use albuterol prn,avoid triggers. -04/01/2021,chronic,stable,use albuterol prn,avoid triggers. Assessment & Plan (01/22/2020 11:58 AM CDT): -01/22/2020,chronic,Asthma,stable,use albuterol prn,avoid triggers. Assessment & Plan (11/09/2019 4:06 PM CDT): -chronic,Asthma-stable,use albuterol prn Assessment & Plan (09/26/2019 11:44 PM SALES ENGINEER ACCOUNT MANAGER): -chronic,Asthma-stable,use albuterol prn Assessment & Plan (09/16/2019 7:50 PM SALES ENGINEER ACCOUNT MANAGER): Asthma-stable,use albuterol prn Assessment & Plan (06/10/2019 9:50 AM SALES ENGINEER ACCOUNT MANAGER): Asthma-stable,use albuterol prn Assessment & Plan (10/10/2018 7:59 PM CDT): Asthma-stable,use albuterol prn Assessment & Plan (06/09/2018 11:20 PM SALES ENGINEER ACCOUNT MANAGER): Asthma-stable,use albuterol prn Assessment & Plan (05/20/2018 10:00 PM CDT): Asthma is stable-use albuterol prn Assessment & Plan (02/24/2018 9:12 PM CDT): Asthma is improving with treatment. The patient is experiencing frequent daytime asthma symptoms. She is experiencing frequent nighttime asthma symptoms. Discussed monitoring symptoms and use of quick-relief medications and contacting us early in the course of exacerbations. Warning signs of respiratory distress were reviewed with the patient. Assessment & Plan (01/29/2018 10:59 PM CDT): Asthma is improving with treatment. The patient is experiencing frequent daytime asthma symptoms. She is experiencing frequent nighttime asthma symptoms. Discussed monitoring symptoms and use of quick-relief medications and contacting us early in the course of exacerbations. Warning signs of respiratory distress were reviewed with the patient. Assessment & Plan (09/18/2017 4:49 PM SALES ENGINEER ACCOUNT MANAGER): Asthma is improving with treatment. The patient is experiencing frequent daytime asthma symptoms. She is experiencing frequent nighttime asthma symptoms. Discussed monitoring symptoms and use of quick-relief medications and contacting us early in the course of exacerbations. Warning signs of respiratory distress were reviewed with the patient. Assessment & Plan (05/09/2017 7:35 PM CDT): Asthma is stable-con't albuterol prn Assessment & Plan (05/08/2017 9:53 PM CDT): Asthma is stable-con't albuterol prn Assessment & Plan (03/06/2017 9:37 PM CDT): Asthma is stable-use albuterol prn Assessment & Plan (03/03/2017 11:22 PM CDT): Asthma is stable-use albuterol prn Resolved Problems Problem Noted Date Diagnosed Date Resolved Date Bronchitis 08/15/2024 02/19/2025 Assessment & Plan (08/19/2024 4:21 PM SALES ENGINEER ACCOUNT MANAGER): -08/15/2024,Acute,start zpak,promethazine. Acute cough 06/09/2024 08/15/2024 Acute cystitis with hematuria 05/01/2024 08/15/2024 Assessment & Plan (06/09/2024 11:31 PM SALES ENGINEER ACCOUNT MANAGER): -05/29/2024,improved with abx. Assessment & Plan (05/15/2024 9:01 AM CDT): Denies urinary concerns. Assessment & Plan (05/13/2024 6:44 PM CDT): -05/01/2024,take abx as rx'd. Low vitamin D level 01/05/2024 05/01/20 24 Assessment & Plan (04/04/2024 12:54 PM CDT): Check vit d, refilled rx Assessment & Plan (01/05/2024 4:41 PM CDT): Check vit d, refilled rx. Non-recurrent acute serous o titis media of right ear 07/29/2023 05/01/2024 Assessment & Plan (08/11/2023 8:42 PM SALES ENGINEER ACCOUNT MANAGER): -07/29/2023,Acute,start bactrim. Acute bacterial sinusitis 10/25/2022 Assessment & Plan (08/11/2023 8:41 PM SALES ENGINEER ACCOUNT MANAGER): -07/29/2023,Acute,start bactrim,cough,increase fluids. Assessment & Plan (11/11/2022 9:37 AM CDT): Seen and treated two weeks ago. Reports symptoms have improved. Assessment & Plan (10/25/2022 9:12 AM CDT): Acute, reports symptoms started 2 weeks ago. Presents with productive cough, congestion, ear fullness, and sinus pressure. Start Z-pac, continue OTC ligia, and increase fluids. Hyperglycemia 10/06/2022 02/19/2025 Myalgia 01/07/2022 10/06/2022 Assessment & Plan (01/07/2022 6:52 PM CDT): No muscle weakness on exam, suspect fibromyalgia. Check cpk and aldolase. Tongue pain 05/06/2021 08/05/2021 Assessment & Plan (05/06/2021 3:50 PM CDT): Check b12 Chest pain 05/06/2021 02/19/2025 Assessment & Plan (10/25/2022 9:13 AM CDT): Resolved. Assessment & Plan (10/10/2022 7:15 PM CDT): -10/06/2022,Acute,c/o Left sided pain,sharp for 3 wks,took no meds,reproducible with palpation,denies falls,trauma.She was encouraged to take motrin,flexeril. Assessment & Plan (05/06/2021 3:51 PM CDT): Check cxr. Tender on palpation but not with deep breath or movement. Annual physical exam 04/04/2021 024 Assessment & Plan (05/13/2024 6:44 PM CDT): -05/01/2024,Exam completed. Assessment & Plan (10/10/2022 7:26 PM CDT): -10/06/2022,Exam done. Assessment & Plan (04/04/2021 11:39 PM CDT): -04/01/2021,Exam done. Myalgia 12/01/2020 08/09/2021 Assessment & Plan (04/04/2021 11:27 PM CDT): -04/01/2021,chronic,stable. Assessment & Plan (01/02/2021 12:46 PM CDT): Check cpk and aldolase. Assessment & Plan (12/01/2020 4:37 PM CDT): Had some lower leg muscle cramps recently. It was not with exertion, only at rest. Viral upper respiratory tract infection 07/30/2020 04/01/2021 Assessment & Plan (07/30/2020 2:59 PM SALES ENGINEER ACCOUNT MANAGER): Had covid 19 infection a month ago. Symptoms mostly resolved. Check cxr before restarting her cellcept. Acute pain of right wrist 01/22/2020 Assessment & Plan (01/22/2020 11:40 AM CDT): -01/21,acute,went to [facility] on 01/13/2020,dx'd with sprain,possible hairline fx,was very painful and swollen,placed in sling.Today,less swollen,still painful.Recommended to see ortho.F/U in 4wks. Chest pain 09/26/2019 01/22/2020 Assessment & Plan (11/09/2019 4:06 PM CDT): -EKG,nsr,no acute changes,HR 85.Has been referred to cardiology for further evaluation.Will do labs today.Possibly pulm related,snoring a lot,not refreshed in am after sleeping,will need sleep study. -11/09/2019,resolved Assessment & Plan (09/26/2019 11:48 PM SALES ENGINEER ACCOUNT MANAGER): -EKG,nsr,no acute changes,HR 85.Has been referred to cardiology for further evaluation.Will do labs today.Possibly pulm related,snoring a lot,not refreshed in am after sleeping,will need sleep study. Screening mammogram, encounter for 09/26/2019 11/07/2019 Pap smear, as part of routin e gynecological examination 09/26/2019 11/07/2019 Assessment & Plan (09/26/2019 11:49 PM SALES ENGINEER ACCOUNT MANAGER): -Exam done,encouraged her to perform monthly SBE. Shortness of breath 09/10/2019 01/22/20 20 Assessment & Plan (11/09/2019 4:05 PM CDT): -new,referred to cardiology for stress test -11/09/2019,resolved Assessment & Plan (09/26/2019 11:46 PM SALES ENGINEER ACCOUNT MANAGER): -new,referred to cardiology for stress test Assessment & Plan (09/16/2019 7:53 PM SALES ENGINEER ACCOUNT MANAGER): -new,order chest xray,refer to cardiology for stress test Screening mammogram, encounter for 09/10/2019 09/26/2019 Low vitamin D level 11/09/2018 06/04/20 19 Left breast mass 02/24/2018 10/03/2018 Assessment & Plan (06/09/2018 11:21 PM SALES ENGINEER ACCOUNT MANAGER): -resolved Assessment & Plan (05/20/2018 10:01 PM CDT): -resolved Assessment & Plan (02/24/2018 9:14 PM CDT): -notes on SBE,confirmed on mammogram and US,has an upcoming appt with surgeon. Class 1 obesity due to exces s calories with serious comorbidity and body mass index (BMI) of 30.0 to 30.9 in adult 02/24/2018 08/05/2021 Assessment & Plan (04/04/2021 11:21 PM CDT): -04/01/2021,chronic,improving,was counseled regarding importance of weight loss. Discussed the patient's BMI. The BMI is above average; BMI management plan is completed. Regular aerobic exercise program discussed. Assessment & Plan (09/26/2019 11:45 PM SALES ENGINEER ACCOUNT MANAGER): Obesity-improving,was counseled regarding importance of weight loss. Discussed the patient's BMI. The BMI is above average; BMI management plan is completed. Regular aerobic exercise program discussed. Assessment & Plan (09/16/2019 7:51 PM SALES ENGINEER ACCOUNT MANAGER): Obesity-improving,was counseled regarding importance of weight loss. Discussed the patient's BMI. The BMI is above average; BMI management plan is completed. Regular aerobic exercise program discussed. Assessment & Plan (06/10/2019 9:52 AM SALES ENGINEER ACCOUNT MANAGER): Obesity-worsening,was counseled regarding importance of weight loss. Discussed the patient's BMI. The BMI is above average; BMI management plan is completed. Regular aerobic exercise program discussed. Assessment & Plan (10/10/2018 8:02 PM CDT): Obesity-improving,was counseled regarding importance of weight loss. Discussed the patient's BMI. The BMI is above average; BMI management plan is completed. Regular aerobic exercise program discussed. Assessment & Plan (06/09/2018 11:21 PM SALES ENGINEER ACCOUNT MANAGER): Obesity-worse,Pt was counseled regarding importance of weight loss. Discussed the patient's BMI. The BMI is above average; BMI management plan is completed. Regular aerobic exercise program discussed. Assessment & Plan (02/24/2018 9:15 PM CDT): Obesity is improving with lifestyle modifications. Discussed the patient's BMI. The BMI is above average; BMI management plan is completed. Regular aerobic exercise program discussed. Encounter for allergy testing 01/27/2018 02/24/2018 BMI 32.0-32.9,adult 09/18/2017 02/25/20 18 Assessment & Plan (09/18/2017 4:51 PM SALES ENGINEER ACCOUNT MANAGER): Chronic-Patient was encouraged to maintain a regular cardiovascular exercise program.Pt was counseled regarding importance of weight loss. Abnormal LFTs 04/15/2017 09/12/2017 Encounter for long-term (cur rent) use of other medications 04/15/2017 09/12/2017 Acute non-recurrent pansinusitis 04/06/2017 06/09/2024 Assessment & Plan (05/08/2017 9:55 PM CDT): Acute-take zpak Obesity (BMI 30-39.9) 03/03/20172017 Assessment & Plan (05/20/2018 10:04 PM CDT): Obesity is improving with lifestyle modifications. Discussed the patient's BMI. The BMI is above average; BMI management plan is completed. Regular aerobic exercise program discussed. Assessment & Plan (05/09/2017 7:35 PM CDT): Obesity is improving with lifestyle modifications. Discussed the patient's BMI. The BMI is above average; BMI management plan is completed. Regular aerobic exercise program discussed. Assessment & Plan (05/08/2017 9:57 PM CDT): Obesity is chronic-Pt was counseled regarding importance of weight loss.Patient was encouraged to maintain a regular cardiovascular exercise program. Assessment & Plan (03/03/2017 11:24 PM CDT): Obesity is chronic-Patient was encouraged to maintain a regular cardiovascular exercise program.Pt was counseled regarding importance of weight loss. Abdominal pain 02/16/2017 01/27/2018 Assessment & Plan (07/28/2020 12:37 PM SALES ENGINEER ACCOUNT MANAGER): SE to plaquenil Elevated lft's with mtx Abd pain with Imuran SE to plaquenil Avise panel 11/10---+ LUIS ANTONIO and + SS-A (no sicca). +arthritis and nose ulcers. Calculus of gallbladder 10/21/201608/25 Overview (12/17/2016): Calculus of gallbladder without cholecystitis without obstruction Assessment & Plan (05/09/2017 7:35 PM CDT): Resolved-s/p gb sx Assessment & Plan (05/08/2017 9:57 PM CDT): S/P gb sx 02/22/2017. Assessment & Plan (03/06/2017 9:37 PM CDT): Symptomatic-has sx scheduled Assessment & Plan (03/03/2017 11:22 PM CDT): Chronic-pt ready for surgery,needs time off work. Steatosis of liver 10/21/2016 0 Overview (12/17/2016): Hepatic steatosis Assessment & Plan (06/04/2020 7:32 AM SALES ENGINEER ACCOUNT MANAGER): Hx of quintero, advised to see gi. Assessment & Plan (03/03/2020 8:52 AM CDT): Hx of quintero, advised to see gi. Assessment & Plan (11/05/2019 7:22 AM CDT): Hx of quintero, advised to see gi. Assessment & Plan (06/27/2019 8:46 AM SALES ENGINEER ACCOUNT MANAGER): Hx of quintero, advised to see gi. Assessment & Plan (05/03/2019 7:40 AM CDT): Liver is better. Pt is losing wt. Assessment & Plan (10/06/2017 2:08 PM CDT): Liver is better. Pt is losing wt. Assessment & Plan (03/06/2017 9:37 PM CDT): Chronic-stable Assessment & Plan (03/03/2017 11:23 PM CDT): Chronic-avoid fatty foods Adiposity 03/01/2016 02/15/2017 Overview (10/28/2016): Obesity (BMI 30.0-34.9) Obesity with body mass index 30 or greater 03/01/2016 02/15/2017 Overview (10/28/2016): BMI 32.0-32.9,adult Rheumatoid arthritis of [facility] sites with negative rheumatoid factor 10/27/2012 10/06/2017 Overview (10/28/2016): RHEUMATOID ARTHRITIS Assessment & Plan (09/18/2017 4:49 PM SALES ENGINEER ACCOUNT MANAGER): Chronic-stable,followed by rheumatology Assessment & Plan (03/03/2017 11:23 PM CDT): Chronic-stable,followed by rheumatology Encounters Date Type Department Care Team Description 03/12/2025 Nurse Triage [facility] - [address] [place] [address] MESSI Kerns [phone] Bibi Murphy DO 03/11/2025 3:30 PM CDT Office Visit [facility] - [address] [place] [address] MESSI Kerns [phone] Bibi Murphy DO Paronychia of right ring finger (Primary Dx); Class 1 obesity due to excess calories with serious comorbidity and body mass index (BMI) of 30.0 to 30.9 in adult 02/19/2025 1:30 PM CDT Office Visit [facility] - [address] [place] [address] [address], [place] [phone] Bibi Murphy DO Dyslipidemia, goal LDL below 130 (Primary Dx); Fibromyalgia; Other systemic lupus erythematosus with other organ involvement (HCC); Moderate persistent asthma without complication; Multiple food allergies; Snores; Weight gain; Paronychia of right ring finger; Hyperglycemia; Vitamin D deficiency; B12 deficiency; Other fatigue; Class 1 obesity due to excess calories with serious comorbidity and body mass index (BMI) of 30.0 to 30.9 in adult 01/24/2025 Telephone [facility] [address] [place] [phone] Jonah Storm 01/23/2025 3:45 PM CDT Office Visit [facility] [address] [place] [phone] Alexus Valdez PA Other systemic lupus erythematosus with other organ involvement (HCC) (Primary Dx); Fibromyalgia; Encounter for long-term (current) use of medications from Last 3 Months Immunizations Immunization Administration Dates Next Due Influenza, Unspecified 05/15/2024(Deferr ed: Patient Refused),05/01/2024(Deferred: Patient Refused),04/24/2023(Deferred: Patient Refused),10/03/2018(Deferred: Patient Refused),09/12/2017(Deferred: Patient decision) Surgical History Surgery Date Site/Laterality Comments TUBAL LIGATION 07/25/2005 - 07/24/2006 Bilateral tubal ligation CHOLECYSTECTOMY 02/22/2017 - 03/24/2017 BREAST BIOPSY 04/18/2024 Right HYSTERECTOMY Medical History Medical History Date Comments Hx Other Medical tubal Pneumonia Pneumonia Obesity Asthma Arthritis Vitamin D deficiency Left breast mass 02/24/2018 Calculus of gallbladder 10/21/2016 Calculus of gallbladder without cholecystitis without obstruction Steatosis of liver 10/21/2016 Hepatic steat osis Anxiety Shortness of breath 09/10/2019 Chest pain 09/26/2019 Viral upper respiratory trac t infection 07/30/2020 Acute pain of right wrist 01/22/2020 Tongue pain 05/06/2021 Chest pain 05/06/2021 Class 1 obesity due to exces s calories with serious comorbidity and body mass index (BMI) of 30.0 to 30.9 in adult 02/24/2018 Myalgia 12/01/2020 Myalgia 01/07/2022 Acute bacterial sinusitis 10/25/2022 Low vitamin D level 01/05/2024 Non-recurrent acute serous o titis media of right ear 07/29/2023 Acute non-recurrent pansinusitis 04/06/2017 Acute cystitis with hematuria 05/01/2024 Acute cough 06/09/2024 Bronchitis 08/15/2024 Chest pain 05/06/2021 Family History Medical History Relation Name Comments Other Father murder victim; Cause of : murder victim Breast cancer Maternal Great-Grandmother age unknown Thyroid disease Mother Thyroid diso rder; Cancer Other 1 Family history of Cancer; Diabetes Other 2 Family history of Diabetes mellitus; Thyroid disease Other 3 Family histo ry of Thyroid disorder; Breast cancer Other 4 Paternal great uncle Breast cancer Paternal Great-Grandmother age unknown Relation Name Status Comments Father Maternal Great-Grandmother Mother Other 1 Other 2 Other 3 Other 4 Paternal great uncle Paternal Great-Grandmother Son Alive Social History Tobacco Use Types Packs/Day Years Used Date Smoking Tobacco: Never Smokeless Tobacco: Never Tobacco Cessation:Counseling Given: Not Answered Alcohol Use Standard Drinks/Week Comments Yes 0 (1 standard drink = 0.6 oz pur e alcohol) PHQ-2 Answer Date Recorded PHQ-2 Total Score (If total score is 3 or more points, staff should administer the PHQ-9) 0 03/11/2025 PHQ-9 Answer Date Recorded PHQ-9 Total Score 0 08/15/2024 Personal Safety Answer Date Recorded Have you ever been in or are you currently in a harmful physical or emotional relationship or is someone making you feel afraid or unsafe? Denies 06/27/2023 Comments No Sex and Gender Information Value Date Recorded Sex Assigned at Not on file Legal Sex Female 9:44 PM SALES ENGINEER ACCOUNT MANAGER Gender Identity Not on file Sexual Orientation Not on file Obstetrics History Para Term AB IAB SAB Ectopic Multiple Livin g Live Births 1 1 1 Date Outcome GA Total Labor Labor/2nd/3rd Weight Sex Type Anes PTL Micheline A1 A5 Name Clin Term Last Filed Vital Signs Vital Sign Reading Time Taken Comments Blood Pressure 116/72 03/11/2025 3:15 PM CDT Pulse 90 03/11/2025 3:15 PM CDT Temperature 36.5 C (97.7 F) 03/11/2025 3:15 PM CDT Respiratory Rate 25 03/11/2025 3:15 PM CDT Oxygen Saturation 98% 03/11/2025 3:15 PM CDT Inhaled Oxygen Concentration - - Weight 84.4 kg (186 lb) 03/11/2025 3:15 PM CDT Height 167.6 cm (5' 6) 03/11/2025 3:15 PM CDT Body Mass Index 30.02 03/11/2025 3:15 PM CDT Plan of Treatment Health Maintenance Due Date Last Done Comments Colon Cancer Screening-Colonoscopy 1979 Hepatitis C Screening 1979 DTaP/Tdap/Td Vaccine (1 - Tdap) 1990 Varicella Vaccines (1 of 2 - 13+ 2-dose series) 1992 Zoster Vaccine (1 of 2) 1998 HPV Vaccines (1 - 3-dose SCD M series) 2006 Breast Cancer Screening-Mammogram 03/22/2025 03/22/2024, 11/18/2022, 10/23/2020, Additional history exists Influenza Vaccine (#1) 2025 Regular Well Visit/Exam 18-64 05/01/2025, 10/06/2022, 04/01/2021, Additional history exists Depression Screening 03/11/2026 03/11/2025, 02/19/2025, 12/31/2024, Additional history exists Cervical Cancer Screening Discontinued 12/29/2020 Hepatitis B Screening Completed 05/25/2024 Pneumococcal vaccine <65 Discontinued Medical Devices Implanted Type Area Hat Renovator Device Identifier Shelf Expiration Date Model / Serial / Lot Derceto Mammostar Tissue Barbell Marker Breast Biopsy Beta Glucan Ceramic [id number] - [id number] Implanted:Qty: 1 on 04/18/2024 at [facility] Clip Right: Breast Derceto 08/20/2028 [id number] / / Procedures Procedure Name Priority Date/Time Associated Diagnosis Comments DIAGNOSTIC MAMMOGRAM BILATERAL W ANDRES Schedule Routine, Read Routine (OP Routine) 03/22/2024 8:20 AM CDT Mass of breast, unspecified laterality Burning sensation PAP ONLY Routine 12/29/2020 8:46 AM CDT Encounter for screening for cervical cancer from Last 3 Months or Most Recently Relevant to Health Maintenance Results * (ABNORMAL) DIAGNOSTIC MAMMOGRAM BILATERAL W ANDRES (03/22/2024 8:20 AM CDT) Anatomical Region Laterality Modality Breast Bilateral Mammography 03/22/2024 10:4 3 AM CDT Impressions 03/22/2024 10:43 AM CDT No suspicious abnormality on targeted ultrasound in the area of focal burning pain. There are new grouped amorphous calcifications identified within the right breast at 9:00, mid to posterior depth. These are indeterminate. Further evaluation with stereotactic biopsy is recommended. Morphologically normal-appearing lymph node within the 3:00 are posterior right breast. This is minimally increased in size compared to the prior mammogram, final disposition pending pathology results. Results and recommendations were discussed with the patient who has been scheduled to return to the breast center by the nurse for stereotactic biopsy of the right breast. OVERALL FINAL ASSESSMENT: SUSPICIOUS. BI-RADS Category 4B: Moderate suspicion for malignancy. RECOMMENDATION: Stereotactic biopsy of the right breast. Electronically signed by: CYNTHIA MORALES MD Narrative 03/22/2024 10:43 AM CDT EXAMINATION: BILATERAL DIGITAL DIAGNOSTIC MAMMOGRAM INCLUDING CAD AND BILATERAL DIGITAL BREAST TOMOSYNTHESIS; RIGHT BREAST SONOGRAM HISTORY: 43-year-old female with significant family history of great grandmother on both sides diagnosed with breast cancer presenting with focal burning pain in the right breast. COMPARISON: 11/18/2022, 10/23/2020 and priors dating back to 2018 TECHNIQUE: Full field digital mammographic views of BOTH breasts were performed, including computer aided detection (CAD) and BILATERAL digital breast tomosynthesis (DBT). Directed ultrasound evaluation of the RIGHT breast was performed. BREAST PARENCHYMAL COMPOSITION: The breasts are heterogeneously dense, which may obscure small masses. MAMMOGRAM FINDINGS: There are multiple fluctuating masses identified within the left breast which are benign. There is a small oval mass in the medial right breast at 3:00 which has an appearance most consistent with an intramammary lymph node. This appears mildly increased in size compared to the prior studies. There is a focal asymmetry with associated grouped amorphous calcifications within the outer slightly upper right breast at 9-10:00. SONOGRAM FINDINGS: Targeted ultrasound of the medial right breast demonstrates a morphologically normal-appearing intramammary lymph node at 3:00 10 cm from the nipple. Targeted ultrasound of the right breast in the area of focal pain and focal asymmetry in the upper outer right breast from 9-11 o'clock demonstrates a ridge of dense fibroglandular tissue. Incidentally noted is a 3 mm benign cyst. No suspicious cystic or solid abnormality is identified in this area on targeted ultrasound at this time. us Bibi Murphy DO IMG MAMMO PROCEDURE S Final Result * Pap Only (12/29/2020 8:46 AM CDT) Swab (Pap test) 12/29/2020 8 :46 AM CDT 12/29/2020 8:46 AM CDT Narrative PATHOLOGY - 12/31/2020 10:21 AM CDT [facility] Department of Pathology [address] [place], [place] [id number] Final Report Patient Name: FARHEEN ARCE Address: [address] [place] [address] Gender: F : 1980 (Age: 40) Service: Laboratory Location: Lab [facility] #: [id number] Patient Type: Ref Lab Taken: 12/29/2020 Received: 12/29/2020 Accessioned:: 12/30/2020 Reported: 12/31/2020 Physician(s): Shannan Barraza ANP Tucker, Sara, ANP Diagnosis: Source of Specimen: IMAGED THINPREP PAP TEST - PATIENTS TRANSPORTER CYTOLOGIC MATERIAL Specimen Adequacy: - Specimen satisfactory for interpretation; endocervical/transformation zone component absent or insufficient General Category: - Negative for intraepithelial lesion or malignancy KHANH Hernandez(ASCP) Report Electronically Reviewed and Signed Out By KHANH Hernandez(ASCP) 12/31/2020 10:21:24 Specimen(s) Received: A: IMAGED THINPREP PAP TEST - PATIENTS TRANSPORTER CYTOLOGIC MATERIAL Clinical History: The Pap test is a screening test used to aid in the detection of cervical cancer and its precursors. It should not be the sole means by which malignant and premalignant lesions are diagnosed. Both false negative and false positive results may occur. It also has poor sensitivity for the detection of endometrial lesions and should not be used to evaluate suspected endometrial abnormalities. For these reasons it is most important to obtain Pap tests at regular intervals. The performance characteristics of some immunohistochemical stains, fluorescence in-situ hybridization tests and immunophenotyping by flow cytometry cited in this report (if any) were determined by the Surgical Pathology Department at [facility] as part of an ongoing supervisor quality control program and in compliance with federally mandated regulations drawn from the Clinical Laboratory Improvement Act of 1988 (CLIA '88). Some of these tests rely on the use of analyte specific reagents and are subject to specific labeling requirements by the US Food and Drug Administration. Such diagnostic tests may only be performed in a facility that is certified by the Department of Health and Human Services as a high complexity laboratory under CLIA '88. The FDA has determined that such clearance or approval is not necessary. This test is used for clinical purposes. It should not be regarded as investigational or for research. Nevertheless, federal rules concerning the medical use of analyte specific reagents require that the following disclaimer be attached to the report: This test was developed and its performance characteristics determined by the Surgical Pathology Department [facility]. It has not been cleared or approved by the U. S. Food and Drug Administration. Shannan Barraza NP LAB CYTOLOGY ORDERABLES Final Re sult Performing Organization Address City/State/[facility] Co de Phone Number [facility] [address] [place] [address] from Last 3 Months or Most Recently Relevant to Health Maintenance Insurance [facility] [id number] [facility] [id number] [employer] OPEN ACCESS [facility] [id number] [facility] [id number] Care Teams Lunchroom Monitor Relationship Specialty Start Date End Date Bibi Murphy DO [address] [place] [address] PCP - General 10/22/16 William Seaman MD [address] [facility] [address] [place] [address] Consulting Physician Rheumatology 12/06/23
--- OUTSIDE RECORDS SUMMARY | 2025-04-08 19:00 | XMS_ITS | Clinical Summary ---
Author Organization [facility] Address [address] [place] [address] Care Team Providers Care Stunner Name Role Phone Unavailable Primary Care Provider Unavailabl e Social History Tobacco Use Types Packs/Day Years Used Date Smoking Tobacco: Never Assessed Comments Unknown Sex and Gender Information Value Date Recorded Sex Assigned at Not on file Legal Sex Female 11:05 AM BACKUP ADMINISTRATIVE COORDINATOR Gender Identity Not on file Sexual Orientation Not on file Plan of Treatment Health Maintenance Due Date Last Done Comments Hepatitis C Virus (HCV) Screening 1979 TdaP Immunization 1979 Hepatitis B Immunization (1 of 3 - 19+ 3-dose series) 1998 Pap Smear 2000 Human Papillomavirus (HPV) Immunization (1 - 3-dose SCDM series) 2006 Cervical Cancer Screening (CCS) 2009 HPV/Cotest 2009 SARS-COV-2 Immunization ( season) 2024 Cologuard 2024 Colonoscopy 2024 Colorectal Cancer Screening 2024 Immunochemical Fecal Occult Blood 2024 Influenza Immunization (#1) 2025 Respiratory Syncytial Virus (RSV) Immunization (Adult) (1 - 1-dose 75+ series) 2054 Meningococcal Immunization (ACWY) Aged Out No longer eligible based on patient's age to complete this topic Pneumococcal Immunization Combined Aged Out No longer eligible based on patient's age to complete this topic Rotavirus Immunization Aged Out No lo nger eligible based on patient's age to complete this topic
--- OUTSIDE RECORDS SUMMARY | 2025-04-08 19:00 | XMS_ITS | Clinical Summary ---
Author Organization [facility] Address [address] [place] [address] Care Team Providers Care Crew Truck Driver Name Role Phone Bibi Michael DO Primary Care Provider [phone] Allergies Active Allergy Reactions Criticality Noted Date Comments Milk-Related Compounds Hives 07/14/2018 Mushrooms Hives 07/14/2018 Shellfish-Derived Products Hives 8 Yeast-Derived Drug Products Hives 07/14/20 18 Medications mycophenolate mofetil 500 MG tablet Take 1,500 mg by mouth daily. 11/22/2019 Active busPIRone 5 MG tablet 01/22/2020 Active HYDROcodone-acet aminophen (NORCO) 10-325 MG tablet Take 1 tablet by mouth every 6 (six) hours. 02/20/2022 Active dextromethorphan -guaiFENesin ER (MUCINEX DM) 30-600 MG TABLET SR 12 HR 12 hr tablet Take 1 tablet by mouth every 12 (twelve) hours as needed. 28 tablet 07/24/2023 Active Active Problems No known active problems Encounters Date Type Department Care Team Description 03/26/2025 Travel from Last 3 Months Family History Medical History Relation Comments None Father Thyroid Disease Mother Relation Status Comments Father Mother Alive Social History Tobacco Use Types Packs/Day Years Used Date Smoking Tobacco: Never Passive Smoke Exposure: Never Smokeless Tobacco: Never Tobacco Cessation:Counseling Given: Not Answered Alcohol Use Standard Drinks/Week Comments Yes 0 (1 standard drink = 0.6 oz pur e alcohol) seldom AUDIT-C Answer Date Recorded Frequency of Alcohol Consumption Never 07/14/2018 Average Number of Drinks Not on file 018 Frequency of Binge Drinking Not on file 06/25 Comments No Sex and Gender Information Value Date Recorded Sex Assigned at Not on file Legal Sex Female 4:50 PM CDT Gender Identity Not on file Sexual Orientation Not on file Last Filed Vital Signs Vital Sign Reading Time Taken Comments Blood Pressure 131/98 06/26/2024 9:07 AM SOCK TURNER Pulse 101 06/26/2024 9:07 AM SOCK TURNER Temperature 37.1 C (98.8 F) 06/26/2024 9:07 AM SOCK TURNER Respiratory Rate 20 06/26/2024 9:07 AM SOCK TURNER Oxygen Saturation 100% 06/26/2024 9:07 AM SOCK TURNER Inhaled Oxygen Concentration - - Weight 81.6 kg (180 lb) 06/26/2024 9:07 AM SOCK TURNER Height 167.6 cm (5' 6) 06/26/2024 9:07 AM SOCK TURNER Body Mass Index 29.05 06/26/2024 9:07 AM SOCK TURNER Plan of Treatment Health Maintenance Due Date Last Done Comments Cervical Cancer Screening Pap Smear (Age 30 to 64) Every 3 Years 1979 Colorectal Cancer Screening Colonoscopy (10 Years) 1979 Annual Physical 1982 COVID-19 Vaccine (#1) 1984 Hepatitis C 1997 DTaP, Tdap and Td Vaccines (1 - Tdap) 1998 Hepatitis B Vaccines (1 of 3 - 19+ 3-dose series) 1998 Pneumococcal Vaccine: Pediatrics (0 to 5 Years) and At-Risk Patients (6 to 49 Years) (1 of 2 - PCV) 1998 HPV Vaccines (1 - 3-dose SCDM series) 2006 Cervical Cancer Screening Pap with HPV Testing (Age 30 to 64) Every 5 Years 2009 Cervical Cancer Screening with HPV 2009 Mammogram Screening 03/22/2026 03/22/2024, 11/18/2022, 10/23/2020, Additional history exists Meningococcal B Vaccine Aged Out No l onger eligible based on patient's age to complete this topic Meningococcal Vaccine Aged Out No ashley nelia eligible based on patient's age to complete this topic RSV Immunizations Under 20 Months Aged Out No longer eligible based on patient's age to complete this topic Insurance [employer] OPEN ACCESS [facility] Care Teams Crew Truck Driver Relationship Specialty Start Date End Date Bibi Michael DO [address] [facility] [address] [place] [address] PCP - General FAMILY PRACTICE 06/01/20
--- OUTSIDE RECORDS SUMMARY | 2025-04-08 19:01 | XMS_ITS | Clinical Summary ---
Author Organization [facility] Address [address] [place] [address] Care Team Providers Care District Customs Director Name Role Phone Bibi Murphy DO Primary Care Provi lui Source Comments [facility],non-owned Affiliates and Associated Physician Practices is amultiple site organization consisting of ambulatory clinics and hospital sitesin [place], [place], [place] and [place]. This disclosure is being madepursuant to the Care Everywhere program and may not contain all information available regarding this patient. Last updated 18.[facility] [employer] Allergies No known active allergies Medications * Be aware that medications may not be up to date on this document. Alwaysverify current medications with the patient. albuterol HFA (PROVENTIL;VENT ROLF;PROAIR) 108 (90 BASE) MCG/ACT inhaler Inhale 2 Puffs by mouth every 6 hours as needed. Active albuterol (PROVENTIL;VENT ROLF) (2.5 MG/3ML) 0.083% nebulizer solution Inhale by mouth every 4 hours while awake. Active Aspirin-Acetami nophen-Caffeine (EXCEDRIN MIGRAINE PO) Take by mouth. 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 Gender Identity Not on file Sexual Orientation Not on file Last Filed Vital Signs Vital Sign Reading Time Taken Comments Blood Pressure 130/82 12/12/2013 10:14 AM CDT Pulse 60 12/12/2013 10:14 AM CDT Temperature 36.9 C (98.4 F) 02/07/2013 10:22 AM CDT Respiratory Rate 16 12/12/2013 10:14 AM CDT Oxygen Saturation 100% 02/07/2013 12:36 PM CDT Inhaled Oxygen Concentration - - Weight 87.5 kg (193 lb) 12/12/2013 10:14 AM CDT Height 165.1 cm (5' 5) 12/12/2013 10:14 AM CDT Body Mass Index 32.12 12/12/2013 10:14 AM CDT Plan of Treatment Health Maintenance Due Date Last Done Comments COLOGUARD (AGES 45-75) - COL ON CA SCREENING 1979 COLON MONITORING 1979 COLONOSCOPY - COLON CA SCREENING 1979 CT COLONOGRAPHY - COLON CA SCREENING 1979 Colorectal Cancer Screening 1979 FIT - COLON CA SCREENING 1979 FLEX SIG - COLON CA SCREENING 1979 LIPID TESTING 1979 MAMMOGRAM 1979 HIV SCREENING 1994 HEPATITIS C SCREENING 08/30/1997 DTAP/TDAP/TD VACCINES (1 - Tdap) 1998 HEPATITIS B VACCINE (1 of 3 - 19+ 3-dose series) 1998 PAP SMEAR 2000 HPV VACCINE (1 - 3-dose SCDM series) 2006 DEPRESSION SCREENING 07/25/2024 COVID-19 VACCINE (1 - 2023-2 5 season) 2025 INFLUENZA VACCINE (#1) 2025 ZOSTER VACCINE (1 of 2) 2029 HIB VACCINE Aged Out No longer eligi ble based on patient's age to complete this topic MENINGOCOCCAL (Group B) VACC INE SHARED DECISION-MAKING Aged Out No longer eligibl e based on patient's age to complete this topic MENINGOCOCCAL GROUPS A/C/Y/W VACCINE Aged Out No longer eligible b ased on patient's age to complete this topic PNEUMOCOCCAL VACCINE Aged Out No long er eligible based on patient's age to complete this topic Insurance [facility] [employer] SELF PAY NO INSURANCE Member Subscriber Plan / Payer (Ef fective for All Dates) Name:Rima Andrewspearl Mendez Member ID:Not on file Relation to Subscriber:Not on file Name:RIMAANDREWSPEARL Subscriber ID:Not on file (Home) Address: [address] [place] [address] Payer ID:Not on file Group ID:Not on file Type:Self Pay Address: [place], [place] Care Teams District Customs Director Relationship Specialty Start Date End Date Bibi Murphy DO PCP - General Family Medicine 09/22/12
[2025-04-08] MEDS: HYDROcodone/acetaminophen (*CRX) 5-325 MG TABLET 1 TAB PO (19:12)
[2025-04-08] MEDS: MUPIROCIN 2% OINT 22 GM TUBE 1 APPLIC TOPICAL (20:18)
[2025-04-08] MEDS: SULFAMETHOXAZOLE/TRIMETHOPRIM 800/160 MG DS TABLET 1 TAB PO (20:18)
== END 2025-04-08 20:28 | disposition home or self-care (01) ==
PROVIDERS: Emergency Provider Registered Nurse
DX: L03.011 Cellulitis of right finger (principal)
CPT/HCPCS: 10060; 99283; A9270